=== PATIENT | female | born 1960 | race Hispanic/Latino ===

== ENCOUNTER 2017-11-29 09:11 | Emergency (ER) | payer BC ==
[2017-11-29 09:12] VITALS: BMI 26.8
[2017-11-29] MEDS ORDERED: Multivitamin (MVI) 10 ML, Thiamine 100 MG, Folic Acid 1 MG in Sodium Chloride 0.9% 1,00... IV ONE (09:45)
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
[2017-11-29 10:26] LABS: BASO # 0.1 K/uL (0.0-0.2); BASO % 0.8 % (0.0-2.0); EOS % 0.1 % (0.0-4.0); HEMOGLOBIN 14.1 g/dL (12.0-16.0); LYMPH # 1.3 K/uL (1.0-4.3); LYMPH % 13.6 % (20.0-40.0); MEAN CELL VOLUME 93.5 fl (81.0-99.0); MEAN CORPUSCULAR HEMOGLOBIN 32.4 pg (27.0-31.0); MEAN CORPUSCULAR HGB CONC 34.6 g/dL (33.0-37.0); MEAN PLATELET VOLUME 7.3 fl (7.2-11.7); MONO # 0.4 K/uL (0.0-0.8); MONO % 4.1 % (0.0-10.0); NEUT # 7.7 K/uL (1.8-7.0); NEUT % 81.4 % (50.0-75.0); NRBC % 0.1 % (0.0-0.0); RBC 4.35 Mil/uL (3.80-5.20); WHITE BLOOD COUNT 9.4 K/uL (4.8-10.8)
[2017-11-29 10:55] LABS: ALB/GLOB RATIO 1.2 (1.0-2.1); ALBUMIN 4.9 g/dL (3.5-5.0); ALT/SGPT 134 U/L (9-52); AST/SGOT 335 U/L (14-36); BLOOD UREA NITROGEN 10 mg/dl (7-17); CALCIUM 10.7 mg/dL (8.4-10.2); GFR AFRICAN-AMERICAN > 60; GFR NON-AFRICAN AMERICAN > 60
[2017-11-29 15:55] VITALS: BP 118/82; PULSE 92; RESP 14; TEMP 99; O2SAT 98
== END 2017-11-29 15:56 | disposition home or self-care (01) ==
LOC: H.ER 09:11
DX: F10.239 Alcohol dependence with withdrawal, unspecified (principal); F32.9 Major depressive disorder, single episode, unspecified; E03.9 Hypothyroidism, unspecified
CPT/HCPCS: 80053; 85025; 96365; 96375; 99283; G0480; J2765; J3411; J7040

== ENCOUNTER 2018-01-01 06:00 | Emergency (ER) | payer BC ==
[2018-01-01 06:00] VITALS: BMI 26.8
[2018-01-01 07:23] LABS: BASO # 0.1 K/uL (0.0-0.2); EOS % 0.4 % (0.0-4.0); LYMPH # 2.1 K/uL (1.0-4.3); LYMPH % 24.1 % (20.0-40.0); MEAN CELL VOLUME 93.8 fl (81.0-99.0); MEAN CORPUSCULAR HEMOGLOBIN 31.7 pg (27.0-31.0); MEAN CORPUSCULAR HGB CONC 33.8 g/dL (33.0-37.0); MEAN PLATELET VOLUME 7.5 fl (7.2-11.7); MONO # 0.4 K/uL (0.0-0.8); MONO % 4.1 % (0.0-10.0); NEUT # 6.1 K/uL (1.8-7.0); NEUT % 70.4 % (50.0-75.0); RBC 4.1 Mil/uL (3.80-5.20); RED CELL DISTRIBUTION WIDTH 13.7 % (11.5-14.5); WHITE BLOOD COUNT 8.6 K/uL (4.8-10.8)
[2018-01-01] MEDS ORDERED: Sodium Chloride 0.9% 1,000 ML IV STA (07:28)
[2018-01-01 07:29] LABS: ALB/GLOB RATIO 1.3 (1.0-2.1); ALBUMIN 4.8 g/dL (3.5-5.0); ALT/SGPT 56 U/L (9-52); AST/SGOT 69 U/L (14-36); BLOOD UREA NITROGEN 9 mg/dl (7-17); CALCIUM 10.2 mg/dL (8.4-10.2); GFR AFRICAN-AMERICAN > 60; GFR NON-AFRICAN AMERICAN > 60
--- NOTE | 2018-01-01 07:34 | ED PDOC ---
HPI: Psych/Substance Abuse Time Seen by Provider: 01/01/18 07:04 Chief Complaint (Nursing): Alcohol Ingestion Chief Complaint (Provider): alcohol abuse History Per: Patient History/Exam Limitations: no limitations Onset/Duration Of Symptoms: Days (x1) Current Symptoms Are (Timing): Still Present Associated Symptoms: denies: Suicidal Thoughts, Suicidal Plan Involuntary Hold By: None Additional Complaint(s): Jackelyn Evans is a 57 year old female, with no significant past medical history, who presents to the emergency department for alcohol abuse. Patient admits to binge drinking of alcohol, last drink 19:30 yesterday. Patient reports feeling tremulous and nauseous. He denies any suicidal or homicidal ideation. No further medical complaints. PMD: None provided. Past Medical History Reviewed: Historical Data, Nursing Documentation, Vital Signs Vital Signs: Last Vital Signs Temp 98.1 F 01/01/18 06:24 Pulse 110 H 01/01/18 07:20 Resp 20 01/01/18 07:20 BP 133/90 01/01/18 07:20 Pulse Ox 99 01/01/18 07:20 - Medical History PMH: Depression, Diverticulitis, Hypothyroidism, Malignancy (lymphoma) Denies: HIV - Surgical History Surgical History: No Surg Hx - Family History Family History: States: Unknown Family Hx - Social History Ex-Smoker (has not smoked in the last 12 months): Yes Alcohol: > 2 Drinks/Day Drugs: Denies - Home Medications Home Medications: Ambulatory Orders Medication Instructions Recorded Levothyroxine [Synthroid] 75 mcg PO DAILY 08/20/14 Ca Pantothenate/Folic Acid/V [Once 1 tab PO DAILY 11/13/14 Daily Multi-Vitamin] [place]-3 Fatty Acids/Fish Oil [Fish 1 cap PO DAILY 11/13/14 Oil 1,000 mg Capsule] Ubidecarenone [Coenzyme Q10] 1 cap PO DAILY 11/13/14 Calcium/Vitamin D [Calcium + D 600 1 tab PO Q48H 03/16/15 mg-200 Iu] Cholecalciferol 400 Intl Units 1 tab PO Q48H 03/16/15 [Vitamin D 400 Intl Units Tab] Ondansetron [Zofran] 4 mg PO Q8H PRN #6 tab 09/04/15 Cyclobenzaprine [Flexeril] 5 mg PO Q8 PRN #10 tab 10/09/15 Ibuprofen [Motrin] 600 mg PO TID PRN #30 tab 10/09/15 chlordiazePOXIDE [Chlordiazepoxide 10 mg PO Q8 #9 cap 12/20/15 HCl] Lorazepam [Ativan] 0.5 mg PO Q8 #6 tab 01/01/18 - Allergies Allergies/Adverse Reactions: Allergies Allergy/AdvReac Type Severity Reaction Status Date / Time chlordiazepoxide Allergy agitation, Verified 01/01/18 07:31 [From Librium] nightmares Review of Systems ROS Statement: Except As Marked, All Systems Reviewed And Found Negative Constitutional: Positive for: Other (ETOH abuse) Psych: Negative for: Suicidal ideation (homicidal ideation) Physical Exam - Reviewed Nursing Documentation Reviewed: Yes Vital Signs Reviewed: Yes - Physical Exam Appears: Positive for: Non-toxic Head Exam: Positive for: ATRAUMATIC, NORMOCEPHALIC Skin: Positive for: Normal Color, Warm, Dry Eye Exam: Positive for: Normal appearance, EOMI, PERRL Neck: Positive for: Painless ROM Cardiovascular/Chest: Positive for: Regular Rate, Rhythm. Negative for: Murmur Respiratory: Positive for: Normal Breath Sounds. Negative for: Respiratory Distress Gastrointestinal/Abdominal: Positive for: Normal Exam, Soft. Negative for: Tenderness, Guarding, Rebound Extremity: Positive for: Normal ROM (upper and lower extremities). Negative for : Deformity, Swelling Neurologic/Psych: Positive for: Alert, Oriented (x3), Other (mild tremor of upper extremities b/l) - Laboratory Results Result Diagrams: 01/01/18 06:50 01/01/18 06:50 - ECG O2 Sat by Pulse Oximetry: 99 (RA) Pulse Ox Interpretation: Normal - Progress Re-evaluation Time: 10:27 Condition: Improved (No tremor Awake alert oriented x 3) Medical Decision Making Medical Decision Making: Initial Plan: --Alcohol serum --CMP --Urine dipstick --CBC w/ differential --Ativan 0.5mg PO --Sodium Chloride 1,000 ml IV 100 mls/hr --Zofran ODT 4 mg PO Scribe Attestation: Documented by Paras Ross, acting as a scribe for Saqib Jacobson MD Provider Scribe Attestation: All medical record entries made by the Scribe were at my direction and personally dictated by me. I have reviewed the chart and agree that the record accurately reflects my personal performance of the history, physical exam, medical decision making, and the department course for this patient. I have also personally directed, reviewed, and agree with the discharge instructions and disposition. Disposition - Clinical Impression Clinical Impression: Alcohol withdrawal - Patient ED Disposition Is Patient to be Admitted: No Counseled Patient/Family Regarding: Studies Performed, Diagnosis, Need For Followup, Rx Given - Disposition Referrals: [facility] [Outside] Disposition: Routine/Home Disposition Time: 10:27 Condition: FAIR Prescriptions: Lorazepam [Ativan] 0.5 mg PO Q8 #6 tab Instructions: Alcohol Withdrawal, Alcohol Abuse and Alcoholism (DC) Forms: [employer] ([place])
[2018-01-01 12:52] VITALS: RESP 18; TEMP 98.2; O2SAT 99
[2018-01-01 13:18] VITALS: BP 146/80; PULSE 94
== END 2018-01-01 13:18 | disposition home or self-care (01) ==
LOC: H.ER 06:00
DX: F10.239 Alcohol dependence with withdrawal, unspecified (principal); E03.9 Hypothyroidism, unspecified; F32.9 Major depressive disorder, single episode, unspecified; Z87.891 Personal history of nicotine dependence
CPT/HCPCS: 80053; 82948; 85025; 99284; G0480; J7040

== ENCOUNTER 2018-03-22 10:21 | Emergency (ER) | payer BC ==
[2018-03-22 10:21] VITALS: BMI 26.8
[2018-03-22 10:25] VITALS: TEMP 98.3
[2018-03-22] MEDS ORDERED: Sodium Chloride 0.9% 1,000 ML IV STA ×2 (11:14→14:28)
[2018-03-22 11:33] LABS: BASO # 0.1 K/uL (0.0-0.2); BASO % 1.7 % (0.0-2.0); EOS # 0.1 K/uL (0.0-0.7); EOS % 1.6 % (0.0-4.0); HEMOGLOBIN 13.4 g/dL (12.0-16.0); LYMPH # 1.4 K/uL (1.0-4.3); LYMPH % 28.7 % (20.0-40.0); MEAN CELL VOLUME 95.5 fl (81.0-99.0); MEAN CORPUSCULAR HEMOGLOBIN 32.4 pg (27.0-31.0); MEAN CORPUSCULAR HGB CONC 33.9 g/dL (33.0-37.0); MEAN PLATELET VOLUME 6.9 fl (7.2-11.7); MONO # 0.3 K/uL (0.0-0.8); MONO % 5.6 % (0.0-10.0); NEUT % 62.4 % (50.0-75.0); NRBC % 0.1 % (0.0-0.0); RBC 4.15 Mil/uL (3.80-5.20); RED CELL DISTRIBUTION WIDTH 13.6 % (11.5-14.5); WHITE BLOOD COUNT 4.8 K/uL (4.8-10.8)
--- NOTE | 2018-03-22 11:52 | ED PDOC ---
HPI: Psych/Substance Abuse Time Seen by Provider: 03/22/18 10:39 Chief Complaint (Nursing): Alcohol Ingestion Chief Complaint (Provider): Alcohol Ingestion History Per: Patient Onset/Duration Of Symptoms: Days (x5) Current Symptoms Are (Timing): Still Present Modifying Factor(s): Alcohol Additional Complaint(s): 57 y/o female with a PMHx of Alcohol Abuse presents to the ED complaining of alcohol intoxication. Patient reports she has been binge drinking for the past five days. Patient admits to drinking this morning. Patient is here today to get help for alcohol problem Additionally, patient is complaining of mild chest pain and palpitations since this morning. Denies vomiting, abdominal pain, diarrhea, fever, headache, suicidal ideation and homicidal ideation. PMD: Kaylin Espino Past Medical History Reviewed: Historical Data, Nursing Documentation, Vital Signs Vital Signs: Last Vital Signs Temp 98.3 F 03/22/18 10:24 Pulse 93 H 03/22/18 11:28 Resp 17 03/22/18 11:28 BP 115/78 03/22/18 11:28 Pulse Ox 96 03/22/18 11:28 - Medical History PMH: Depression, Diverticulitis, Hypothyroidism, Malignancy (lymphoma) Denies: HIV - Surgical History Surgical History: No Surg Hx - Family History Family History: States: Unknown Family Hx - Home Medications Home Medications: Ambulatory Orders Medication Instructions Recorded Levothyroxine [Synthroid] 75 mcg PO DAILY 08/20/14 Ca Pantothenate/Folic Acid/V [Once 1 tab PO DAILY 11/13/14 Daily Multi-Vitamin] [place]-3 Fatty Acids/Fish Oil [Fish 1 cap PO DAILY 11/13/14 Oil 1,000 mg Capsule] Ubidecarenone [Coenzyme Q10] 1 cap PO DAILY 11/13/14 Calcium/Vitamin D [Calcium + D 600 1 tab PO Q48H 03/16/15 mg-200 Iu] Cholecalciferol 400 Intl Units 1 tab PO Q48H 03/16/15 [Vitamin D 400 Intl Units Tab] Ondansetron [Zofran] 4 mg PO Q8H PRN #6 tab 09/04/15 Cyclobenzaprine [Flexeril] 5 mg PO Q8 PRN #10 tab 10/09/15 Ibuprofen [Motrin] 600 mg PO TID PRN #30 tab 10/09/15 chlordiazePOXIDE [Chlordiazepoxide 10 mg PO Q8 #9 cap 12/20/15 HCl] Lorazepam [Ativan] 0.5 mg PO Q8 #6 tab 01/01/18 Ondansetron [Zofran] 4 mg PO Q8H #10 tab 01/01/18 LORazepam [Ativan] 1 mg PO Q8 PRN #6 tab 03/22/18 Ondansetron ODT [Zofran ODT] 4 mg PO Q6 PRN #8 odt 03/22/18 - Allergies Allergies/Adverse Reactions: Allergies Allergy/AdvReac Type Severity Reaction Status Date / Time chlordiazepoxide Allergy agitation, Verified 03/22/18 10:28 [From Librium] nightmares Review of Systems ROS Statement: Except As Marked, All Systems Reviewed And Found Negative Cardiovascular: Positive for: Chest Pain (mild), Palpitations Psych: Positive for: Other (EtOH intoxication) Physical Exam - Reviewed Nursing Documentation Reviewed: Yes Vital Signs Reviewed: Yes - Physical Exam Appears: Positive for: Non-toxic, No Acute Distress Head Exam: Positive for: ATRAUMATIC, NORMOCEPHALIC Skin: Positive for: Normal Color, Warm, Dry Eye Exam: Positive for: Normal appearance, EOMI, PERRL ENT: Positive for: Normal ENT Inspection Neck: Positive for: Normal, Painless ROM Cardiovascular/Chest: Positive for: Regular Rate, Rhythm, Tachycardia. Negative for: Murmur Respiratory: Positive for: Normal Breath Sounds. Negative for: Respiratory Distress Gastrointestinal/Abdominal: Positive for: Normal Exam, Soft. Negative for: Tenderness Back: Positive for: Normal Inspection. Negative for: L CVA Tenderness, R CVA Tenderness, Vertebral Tenderness Extremity: Positive for: Normal ROM. Negative for: Pedal Edema, Deformity Neurologic/Psych: Positive for: Alert, Oriented (x3), Gait (unsteady), Other ( Slurred Speech). Negative for: Motor/Sensory Deficits - Laboratory Results Result Diagrams: 03/22/18 11:20 03/22/18 11:20 - ECG ECG: Positive for: Interpreted By Me, Viewed By Me ECG Rhythm: Positive for: Normal QRS, Normal ST Segment, Sinus Tachycardia. Negative for: ST/T Changes Rate: 103 O2 Sat by Pulse Oximetry: 96 (RA) Pulse Ox Interpretation: Normal Medical Decision Making Medical Decision Making: Time: 1115 Impression: Alcohol Abuse/Intoxication, chest pain Plan: -- EKG -- Alcohol Serum -- CMP -- Urine Drug Screen -- Crisis Evaluation -- ED Urine -- CBC with differentials -- Folic Acid 1 mg PO -- Sodium Chloride IV 1000 mls/hr -- Vitamin B1 100 mg PO -- Urinalysis 16:45 Date of service: 03/22/2018 HISTORY: chest pain COMPARISON: 10/09/2015. FINDINGS: LUNGS: No active pulmonary disease. PLEURA: No significant pleural effusion identified, no pneumothorax apparent. CARDIOVASCULAR: No radiographic findings to suggest acute or significant cardiovascular disease. OSSEOUS STRUCTURES: No significant abnormalities. VISUALIZED UPPER ABDOMEN: Normal. OTHER FINDINGS: None. IMPRESSION: No active disease. No significant interval change compared to the prior examination(s). 19:05 Reassessed patient. Patient states shes feeling better, but is anxious. Patient is clinically sober and agreeable to crisis evaluation. Patient given Ativan to prevent withdrawals. Patient endorsed to Dr. Baugh pending crisis and reevaluation. Scribe Attestation: Documented by Tamara Campbell acting as a scribe for Dr. Reginaldo Pate MD. Provider Scribe Attestation: All medical record entries made by the Scribe were at my direction and personally dictated by me. I have reviewed the chart and agree that the record accurately reflects my personal performance of the history, physical exam, medical decision making, and the department course for this patient. I have also personally directed, reviewed, and agree with the discharge instructions and disposition. Disposition - Clinical Impression Clinical Impression: Alcohol use disorder - Patient ED Disposition Is Patient to be Admitted: Transfer of Care Counseled Patient/Family Regarding: Studies Performed, Diagnosis - Disposition Disposition: Transfer of Care Disposition Time: 19:05 Condition: STABLE Additional Instructions: LISA MATTA, thank you for letting us take care of you today. Your provider was Edy Baugh MD and you were treated for ETOH. The emergency medical care you received today was directed at your acute symptoms. If you were prescribed any medication, please fill it and take as directed. It may take several days for your symptoms to resolve. Return to the Emergency Department if your symptoms worsen, do not improve, or if you have any other problems. Please contact your doctor or call one of the physicians/clinics you have been referred to that are listed on the Patient Visit Information form that is included in your discharge packet. Bring any paperwork you were given at discharge with you along with any medications you are taking to your follow up visit. Our treatment cannot replace ongoing medical care by a primary care provider outside of the emergency department. Thank you for allowing the [facility] team to be part of your care today. If you had an X-Ray or CT scan: A Radiologist will review the ED reading if any change in treatment is needed we will contact you. If you had a blood, urine, or wound culture: It will take several days for the results, if any change in treatment is needed we will contact you. If you had an STI test: It will take 48 hours for the results. Please call after 1 week if you have not heard back. Prescriptions: LORazepam [Ativan] 1 mg PO Q8 PRN #6 tab PRN Reason: Anxiety Ondansetron ODT [Zofran ODT] 4 mg PO Q6 PRN #8 odt PRN Reason: Nausea/Vomiting Instructions: Alcohol Use - When Is Drinking a Problem? Patient Signed Over To: Edy Baugh Handoff Comments: pending crisis and reevaluation
[2018-03-22 11:59] LABS: ALB/GLOB RATIO 1.4 (1.0-2.1); ALBUMIN 4.7 g/dL (3.5-5.0); ALT/SGPT 118 U/L (9-52); AST/SGOT 233 U/L (14-36); BLOOD UREA NITROGEN 15 mg/dl (7-17); CALCIUM 9.6 mg/dL (8.4-10.2); GFR NON-AFRICAN AMERICAN > 60
--- NOTE | 2018-03-22 12:25 | CARD ---
APPROVED REPORT Date of service: 03/22/2018 EKG Measurement Heart [id number] <Conclusion> Sinus tachycardia Possible Left atrial enlargement Low voltage QRS Borderline ECG
[2018-03-22 15:54] VITALS: BP 117/81; PULSE 103; RESP 20
[2018-03-22 16:17] VITALS: O2SAT 96
--- NOTE | 2018-03-22 16:46 | RAD ---
Date of service: 03/22/2018 HISTORY: chest pain COMPARISON: 10/09/2015. FINDINGS: LUNGS: No active pulmonary disease. PLEURA: No significant pleural effusion identified, no pneumothorax apparent. CARDIOVASCULAR: No radiographic findings to suggest acute or significant cardiovascular disease. OSSEOUS STRUCTURES: No significant abnormalities. VISUALIZED UPPER ABDOMEN: Normal. OTHER FINDINGS: None. IMPRESSION: No active disease. No significant interval change compared to the prior examination(s).
[2018-03-22 17:37] LABS: SQUAMOUS EPITHIAL < 1 /hpf (0-5); URINE BACTERIA RARE (<OCC); URINE BILIRUBIN NEGATIVE (NEGATIVE); URINE BLOOD MODERATE (NEGATIVE); URINE CLARITY CLEAR (Clear); URINE COLOR YELLOW (YELLOW); URINE GLUCOSE (UA) NEG (Normal); URINE LEUKOCYTE ESTERASE TRACE Leu/uL (Negative); URINE PROTEIN NEGATIVE (NEGATIVE); URINE UROBILINOGEN 0.2-1.0 mg/dL (0.2-1.0)
[2018-03-22 17:49] LABS: BARBITURATES, UR NEGATIVE (NEGATIVE); BENZODIAZEPINES, UR NEGATIVE (NEGATIVE); OPIATES, UR NEGATIVE (NEGATIVE); PHENCYCLIDINE, UR NEGATIVE (NEGATIVE)
--- NOTE | 2018-03-22 19:13 | ED PDOC ---
- Laboratory Results Result Diagrams: 03/22/18 11:20 03/22/18 11:20 - ECG O2 Sat by Pulse Oximetry: 96 (RA) Medical Decision Making Medical Decision Makin:05 Patient endorsed to me by Dr. Pate pending crisis and reevaluation. 20:25 Patient evaluated by crisis. Patient declines any detox referral or services. Patient stable for discharge. Scribe Attestation: Documented by Rodrick Leyva, acting as a scribe for Edy Baugh MD. Provider Scribe Attestation: All medical record entries made by the Scribe were at my direction and personally dictated by me. I have reviewed the chart and agree that the record accurately reflects my personal performance of the history, physical exam, medical decision making, and the department course for this patient. I have also personally directed, reviewed, and agree with the discharge instructions and disposition. Disposition Counseled Patient/Family Regarding: Diagnosis, Need For Followup - Clinical Impression Clinical Impression: Alcohol use disorder - POA Present On Arrival: None - Disposition Disposition: Routine/Home Disposition Time: 20:25 Condition: STABLE Additional Instructions: LISA MATTA, thank you for letting us take care of you today. Your provider was Edy Baugh MD and you were treated for ETOH. The emergency medical care you received today was directed at your acute symptoms. If you were prescribed any medication, please fill it and take as directed. It may take several days for your symptoms to resolve. Return to the Emergency Department if your symptoms worsen, do not improve, or if you have any other problems. Please contact your doctor or call one of the physicians/clinics you have been referred to that are listed on the Patient Visit Information form that is included in your discharge packet. Bring any paperwork you were given at discharge with you along with any medications you are taking to your follow up visit. Our treatment cannot replace ongoing medical care by a primary care provider outside of the emergency department. Thank you for allowing the [facility] team to be part of your care today. If you had an X-Ray or CT scan: A Radiologist will review the ED reading if any change in treatment is needed we will contact you. If you had a blood, urine, or wound culture: It will take several days for the results, if any change in treatment is needed we will contact you. If you had an STI test: It will take 48 hours for the results. Please call after 1 week if you have not heard back. Prescriptions: LORazepam [Ativan] 1 mg PO Q8 PRN #6 tab PRN Reason: Anxiety Ondansetron ODT [Zofran ODT] 4 mg PO Q6 PRN #8 odt PRN Reason: Nausea/Vomiting Instructions: Alcohol Use - When Is Drinking a Problem? Forms: [employer] (Persian)
== END 2018-03-22 21:47 | disposition home or self-care (01) ==
LOC: H.ER 10:21
DX: F10.129 Alcohol abuse with intoxication, unspecified (principal); R07.89 Other chest pain; E03.9 Hypothyroidism, unspecified; F32.9 Major depressive disorder, single episode, unspecified
CPT/HCPCS: 71045; 80053; 81003; 81025; 82948; 84484; 85025; 93005; 96361; 96374; 99284; G0480; J2405; J7030

== ENCOUNTER 2018-11-06 08:06 | Inpatient (IN) | payer BC ==
[2018-11-06 08:07] VITALS: BMI 25.0
[2018-11-06] MEDS ORDERED: Sodium Chloride 0.9% 1,000 ML IV STA (08:23)
--- NOTE | 2018-11-06 08:47 | ED PDOC ---
HPI: Psych/Substance Abuse Time Seen by Provider: 11/06/18 08:23 Chief Complaint (Nursing): Alcohol Ingestion Chief Complaint (Provider): Alcohol withdrawal History Per: Patient History/Exam Limitations: no limitations Additional Complaint(s): 58yo female with history of hypothyroidsm, alcohol abuse x 6 years, comes to ER reporting she is currently in alcohol withdrawal; patient reports her last drink was 24 hours ago. Otherwise, no complaints of chest pain, shortness of breath, vomiting, abdominal pain. No additional medical complaints. PMD: [place] Past Medical History Reviewed: Historical Data, Nursing Documentation, Vital Signs Vital Signs: Last Vital Signs Temp 98.2 F 11/06/18 08:11 Pulse 101 H 11/06/18 08:12 Resp 14 11/06/18 08:12 BP 126/94 H 11/06/18 08:12 Pulse Ox 100 11/06/18 08:12 - Medical History PMH: Depression, Diverticulitis, Hypothyroidism, Malignancy (lymphoma) Denies: Diabetes, Hepatitis, HIV, HTN, Chronic Kidney Disease, Seizures, Sexually Transmitted Disease - Surgical History Surgical History: No Surg Hx - Family History Family History: States: Unknown Family Hx - Home Medications Home Medications: Ambulatory Orders Medication Instructions Recorded Lactobacillus Combination No.8 1 cap PO DAILY 11/06/18 [Adult Probiotic] Levothyroxine [Synthroid] 75 mcg PO DAILY 11/06/18 Multivitamin [Multi-Vitamin Daily] 1 tab PO DAILY 11/06/18 - Allergies Allergies/Adverse Reactions: Allergies Allergy/AdvReac Type Severity Reaction Status Date / Time chlordiazepoxide Allergy agitation, Verified 05/01/18 11:38 [From Librium] nightmares Review of Systems ROS Statement: Except As Marked, All Systems Reviewed And Found Negative Constitutional: Negative for: Fever Cardiovascular: Negative for: Chest Pain Respiratory: Negative for: Shortness of Breath Gastrointestinal: Negative for: Vomiting, Abdominal Pain Neurological: Positive for: Other (tremors) Psych: Positive for: Withdrawal Physical Exam - Reviewed Nursing Documentation Reviewed: Yes Vital Signs Reviewed: Yes - Physical Exam Appears: Positive for: No Acute Distress (tremulous) Head Exam: Positive for: ATRAUMATIC, NORMAL INSPECTION, NORMOCEPHALIC Skin: Positive for: Warm, Dry Eye Exam: Positive for: EOMI, PERRL Neck: Positive for: Supple Cardiovascular/Chest: Positive for: Tachycardia Respiratory: Positive for: Normal Breath Sounds Gastrointestinal/Abdominal: Positive for: Normal Exam, Soft Back: Positive for: Normal Inspection Extremity: Positive for: Normal ROM, Other (tremulous) Neurological/Psych: Positive for: Awake, Alert, Oriented (x 3), Other (appears to be withdrawqing) - Laboratory Results Result Diagrams: 11/06/18 08:42 11/06/18 08:42 - ECG O2 Sat by Pulse Oximetry: 100 (RA) Pulse Ox Interpretation: Normal Medical Decision Making Medical Decision [place] female with alcohol withdrawal- pt tachycardic and hypertensive Plan: -- Labs -- IV Fluids -- Ativan 1mg IVP (patient allergic to librium) banana bag 1500 Labs reviewed, patient with hypothyroidsm 1540 On reassessment, patient with persistent tremors. Due to hypothyroidsm, tremors, patient to be admitted for observation. Case discussed with Dr. Morales and patient admitted. Consult for endocrine placed. pt aware and agreeable Scribe Attestation: Documented by Neema Marx acting as a scribe for Edna Humphries MD. Provider Attestation: All medical record entries made by the Scribe were at my direction and personally dictated by me. I have reviewed the chart and agree that the record a ccurately reflects my personal performance of the history, physical exam, medical decision making, and the department course for this patient. I have also personally directed, reviewed, and agree with the discharge instructions and disposition. Disposition - Clinical Impression Clinical Impression: Alcohol withdrawal, Hypothyroid - Patient ED Disposition Is Patient to be Admitted: Yes Counseled Patient/Family Regarding: Studies Performed, Diagnosis, Smoking Cessation - Disposition Disposition Time: 15:00 Condition: STABLE
[2018-11-06 08:59] LABS: BASO # 0.1 K/uL (0.0-0.2); BASO % 0.8 % (0.0-2.0); EOS % 0.1 % (0.0-4.0); HEMOGLOBIN 12.8 g/dL (12.0-16.0); LYMPH # 0.5 K/uL (1.0-4.3); LYMPH % 8.8 % (20.0-40.0); MEAN CORPUSCULAR HEMOGLOBIN 33.1 pg (27.0-31.0); MEAN CORPUSCULAR HGB CONC 34.5 g/dL (33.0-37.0); MEAN PLATELET VOLUME 7.1 fl (7.2-11.7); MONO # 0.3 K/uL (0.0-0.8); MONO % 5.5 % (0.0-10.0); NEUT # 5.2 K/uL (1.8-7.0); NEUT % 84.8 % (50.0-75.0); NRBC % 0.2 % (0.0-0.0); PLATELET COUNT 261 K/uL (130-400); RBC 3.85 Mil/uL (3.80-5.20); WHITE BLOOD COUNT 6.1 K/uL (4.8-10.8)
[2018-11-06 09:06] LABS: ALB/GLOB RATIO 1.4 (1.0-2.1); ALBUMIN 4.6 g/dL (3.5-5.0); ALT/SGPT 45 U/L (9-52); AST/SGOT 56 U/L (14-36); BLOOD UREA NITROGEN 22 mg/dl (7-17); CALCIUM 9.9 mg/dL (8.4-10.2); GFR NON-AFRICAN AMERICAN > 60
[2018-11-06 09:51] LABS: BASOPHIL 1 % (0-2); LYMPHOCYTE 9 % (20-50); MONOCYTE 4 % (0-10); NEUTROPHIL 86 % (42-75); TOTAL CELLS COUNTED 100
[2018-11-06 09:57] LABS: PLATELET ESTIMATE NORMAL (NORMAL)
[2018-11-06] MEDS ORDERED: Multivitamin (MVI) 10 ML, Thiamine 100 MG, Folic Acid 1 MG in Dextrose 5%/0.45% NS 1,00... IV ONE (10:53)
[2018-11-06] MEDS ORDERED: Dextrose 5%/0.45% NS 1,000 ML IV SCH (16:30)
[2018-11-06 17:53] VITALS: RESP 18
--- NOTE | 2018-11-06 21:10 | CARD ---
APPROVED REPORT Date of service: 11/06/2018 EKG Measurement Heart [id number] <Conclusion> Normal sinus rhythm Prolonged QT Abnormal ECG
[2018-11-07 01:03] LABS: BARBITURATES, UR NEGATIVE (NEGATIVE); BENZODIAZEPINES, UR NEGATIVE (NEGATIVE); OPIATES, UR NEGATIVE (NEGATIVE); PHENCYCLIDINE, UR NEGATIVE (NEGATIVE)
[2018-11-07 05:58] LABS: ALB/GLOB RATIO 1.3 (1.0-2.1); ALBUMIN 3.5 g/dL (3.5-5.0); ALT/SGPT 34 U/L (9-52); AST/SGOT 45 U/L (14-36); BLOOD UREA NITROGEN 10 mg/dl (7-17); CALCIUM 9.1 mg/dL (8.4-10.2); GFR NON-AFRICAN AMERICAN > 60; LIPASE 108 U/L (23-300)
[2018-11-07 06:08] LABS: LDL CHOLESTEROL 68 mg/dL (0-129)
[2018-11-07 06:10] LABS: HDL CHOLESTEROL 115 MG/DL (30-70)
--- NOTE | 2018-11-07 06:27 | CP.PCM.HP ---
History of Present Illness - History of Present Illness History of Present Illness: This is 58 y/o F with PMH of Alcohol use disorder/Withdrawal/Relapses, Hypothyroid and Lymphoma (Large B cell, S/p RT and Chemo in 2005, in remission) admitted for evaluation and treatment of alcohol withdrawal/abuse. Patient presented to ER c/o "I am having alcohol withdrawal", reports her last drink was >24 hours before, started feeling sweaty, upper extremities tremors and n/v since last 12 hours (multiple episodes of NBNB vomiting). Patient reports she is a "binge alcoholic", she hasnt taken her thyroid medication for last 11 days. Patient denies any auditory or visual hallucination, SI/HI, palpitations, chest pain, anxiety, headaches, visual changes, diarrhea, abdominal pain or urinary symptoms. - Patient reports she has to go to work in morning, so wont be able to stay and needs note from MD for work and court. PMH:Alcohol use disorder/Withdrawal/Relapses, Hypothyroid and Lymphoma (Large B cell, S/p RT and Chemo in 2005, in remission) PSH: Denies Allg: Librium (Gets angry after librium) Meds: Levothyroxin FH: Dad: Colon cancer, Mother: [place] SH: binge alcoholic, Denies any smoking or illicit drug use ROS: As above Present on Admission - Present on Admission Any Indicators Present on Admission: No Past Patient History - Infectious Disease Hx of Infectious Diseases: None - Past Medical History & Family History Past Medical History?: Yes - Past Social History Smoking Status: Never Smoked - CARDIAC Hx Cardiac Disorders: No Hx Angina: No Hx Atrial Fibrillation: No Hx Cardia Arrhythmia: No Hx Circulatory Problems: No Hx Congestive Heart Failure: No Hx Heart Attack: No Hx Heart Murmur: No Hx Heart Transplant: No Hx Hypercholesterolemia: No Hx Hypertension: No Hx Hypotension: No Hx Internal Defibrillator: No Hx Mitral Valve Prolapse: No Hx Pacemaker: No Hx Peripheral Edema: No Hx Peripheral Vascular Disease: No - PULMONARY Hx Respiratory Disorders: No Hx Asthma: No Hx Bronchitis: No Hx Chronic Obstructive Pulmonary Disease (COPD): No Hx Emphysema: No Hx Lung Cancer: No Hx Pneumonia: No Hx Pulmonary Edema: No Hx Pulmonary Embolism: No Hx Respiratory Aspiration: No Hx Respiratory Tract Infection: No Hx Sleep Apnea: No Hx Tuberculosis: No - NEUROLOGICAL Hx Neurological Disorder: No Hx Seizures: No - HEENT Hx HEENT Problems: No - RENAL Hx Chronic Kidney Disease: No - ENDOCRINE/METABOLIC Hx Endocrine Disorders: Yes Hx Hypothyroidism: Yes - HEMATOLOGICAL/ONCOLOGICAL Hx AIDS: No Hx Cancer: Yes (Non-hodgkins lymphoma, remission 12 years) Hx Chemotherapy: Yes Hx Human Immunodeficiency Virus (HIV): No - INTEGUMENTARY Hx Dermatological Problems: No Hx Basil Cell: No Hx Paz: No Hx Cellulitis: No Hx Eczema: No Hx Melanoma: No Hx Psoriasis: No Hx Squamous Cell: No - MUSCULOSKELETAL/RHEUMATOLOGICAL Hx Musculoskeletal Disorders: No Hx Falls: No - GASTROINTESTINAL Hx Gastrointestinal Disorders: Yes Hx Diverticulitis: Yes Hx Nausea: Yes Hx Vomiting: Yes - GENITOURINARY/GYNECOLOGICAL Hx Genitourinary Disorders: No Hx Sexually Transmitted Disorders: No - PSYCHIATRIC Hx Psychophysiologic Disorder: Yes Hx Depression: Yes Hx Substance Use: Yes (alcohol abuse) - SURGICAL HISTORY Hx Surgeries: No - ANESTHESIA Hx Anesthesia: No Hx Anesthesia Reactions: No Hx Malignant Hyperthermia: No Has any member of the family had a problem w/ anesthesia?: No Meds Allergies/Adverse Reactions: Allergies Allergy/AdvReac Type Severity Reaction Status Date / Time chlordiazepoxide Allergy agitation, Verified 05/01/18 11:38 [From Librium] nightmares Physical Exam - Constitutional Appears: No Acute Distress - Head Exam Head Exam: NORMAL INSPECTION - Eye Exam Eye Exam: Normal appearance - ENT Exam ENT Exam: Mucous Membranes Moist, Normal Exam - Neck Exam Neck exam: Positive for: Normal Inspection - Respiratory Exam Respiratory Exam: Clear to Auscultation Bilateral, NORMAL BREATHING PATTERN. absent: Rhonchi, Wheezes, Respiratory Distress - Cardiovascular Exam Cardiovascular Exam: Tachycardia, REGULAR RHYTHM, +S1, +S2 - GI/Abdominal Exam GI & Abdominal Exam: Normal Bowel Sounds, Soft. absent: Tenderness - Extremities Exam Additional comments: upper extremity tremors - Back Exam Back exam: NORMAL INSPECTION. absent: CVA tenderness (L), CVA tenderness (R) - Neurological Exam Neurological exam: Alert, CN II-XII Intact, Normal Gait, Oriented x3, Reflexes Normal Additional comments: CIWA score 7 - Psychiatric Exam Psychiatric exam: Normal Affect, Normal Mood - Skin Skin Exam: Normal Color Results - Vital Signs Recent Vital Signs: Last Vital Signs Temp 98.6 F 11/07/18 05:22 Pulse 88 11/07/18 05:22 Resp 18 11/07/18 05:22 BP 107/67 11/07/18 05:22 Pulse Ox 97 11/07/18 05:22 - Labs Result Diagrams: 11/06/18 08:42 11/07/18 04:45 Labs: Laboratory Results - last 24 hr 11/06/18 11/06/18 11/07/18 08:42 08:42 00:41 WBC 6.1 RBC 3.85 Hgb 12.8 Hct 37.0 MCV 96.0 MCH 33.1 H MCHC 34.5 RDW 14.0 Plt Count 261 MPV 7.1 L Neut % (Auto) 84.8 H Lymph % (Auto) 8.8 L [place] % (Auto) 5.5 Eos % (Auto) 0.1 Baso % (Auto) 0.8 Neut # (Auto) 5.2 Lymph # (Auto) 0.5 L [place] # (Auto) 0.3 Eos # (Auto) 0.0 Baso # (Auto) 0.1 Neutrophils % (Manual) 86 H Lymphocytes % (Manual) 9 L Monocytes % (Manual) 4 Basophils % (Manual) 1 Platelet Estimate Normal RBC Morphology Normal Sodium 136 Potassium 3.6 Chloride 96 L Carbon Dioxide 26 Anion Gap 18 BUN 22 H Creatinine 0.8 Est GFR ( Amer) > 60 Est GFR (Non-Af Amer) > 60 Random Glucose 121 H Calcium 9.9 Magnesium Total Bilirubin 0.8 AST 56 H D ALT 45 Alkaline Phosphatase 73 Troponin I < 0.0120 Total Protein 7.9 Albumin 4.6 Globulin 3.3 Albumin/Globulin Ratio 1.4 Triglycerides Cholesterol LDL Cholesterol Direct HDL Cholesterol Lipase Thyroxine (T4) 3.25 L TSH 3rd Generation 14.30 H Urine Opiates Screen Negative Urine Methadone Screen Negative Ur Barbiturates Screen Negative Ur Phencyclidine Scrn Negative Ur Amphetamines Screen Negative U Benzodiazepines Scrn Negative U Oth Cocaine Metabols Negative U Cannabinoids Screen Negative Alcohol, Quantitative < 10 11/07/18 04:45 WBC RBC Hgb Hct MCV MCH MCHC RDW Plt Count MPV Neut % (Auto) Lymph % (Auto) [place] % (Auto) Eos % (Auto) Baso % (Auto) Neut # (Auto) Lymph # (Auto) [place] # (Auto) Eos # (Auto) Baso # (Auto) Neutrophils % (Manual) Lymphocytes % (Manual) Monocytes % (Manual) Basophils % (Manual) Platelet Estimate RBC Morphology Sodium 135 Potassium 2.9 L Chloride 103 Carbon Dioxide 25 Anion Gap 10 BUN 10 Creatinine 0.8 Est GFR ( Amer) > 60 Est GFR (Non-Af Amer) > 60 Random Glucose 108 H Calcium 9.1 Magnesium 1.6 Total Bilirubin 0.9 AST 45 H ALT 34 Alkaline Phosphatase 64 Troponin I Total Protein 6.3 Albumin 3.5 D Globulin 2.8 Albumin/Globulin Ratio 1.3 Triglycerides 200 H D Cholesterol 199 LDL Cholesterol Direct 68 HDL Cholesterol 115 H Lipase 108 Thyroxine (T4) 3.01 L TSH 3rd Generation 24.00 H Urine Opiates Screen Urine Methadone Screen Ur Barbiturates Screen Ur Phencyclidine Scrn Ur Amphetamines Screen U Benzodiazepines Scrn U Oth Cocaine Metabols U Cannabinoids Screen Alcohol, Quantitative Assessment & Plan - Assessment and Plan (Free Text) Assessment: A/P: 58 y/o F with PMH of Alcohol use disorder/Withdrawal/Relapses, Hypothyroid and Lymphoma (Large B cell, S/p RT and Chemo in 2005, in remission) admitted for evaluation and treatment of alcohol withdrawal/abuse. Alcohol withdrawal/ Abuse - S/p IVF, Banana beg - C/w IVF - Ativan PRN - Monitor for withdrawal symptoms - [facility] - Start Thiamin and Folate - F/u morning labs QT prolongation on EKG, likely 2/2 alcohol use/withdrawal - Repeat EKG in morning - Cardio consult, f/u recommendations Nausea and Vomiting - C/w Reglan (No zofran, QT prolonged) - Symptomatic management - IVF - Diet as tolerated Hypothyroid - C/w Home Synthroid dose: 75 mcg - Consult Endo, f/u recommendations DVT PPX: SCD, lovenox Case discussed with Dr. Morales, agrees with plan.
[2018-11-07] MEDS ORDERED: Levothyroxine 100 MCG TAB PO SCH (06:30)
[2018-11-07] MEDS ORDERED: Levothyroxine 75 MCG TAB PO SCH (06:30)
--- NOTE | 2018-11-07 06:58 | CP.PCM.CON ---
History of Present Illness - History of Present Illness History of Present Illness: 58 y/o female admitted with alcohol withdrawal Cardiology consult is called because of prolonged QT interval on EKG which has been present for at least 4 years She denies any history of cardiac problems or hypertension Denies chest pain, shortness of breath, syncope, vertigo or palpitations The prolonged QT interval is secondary to patient's alcohol withdrawal Past Patient History - Infectious Disease Hx of Infectious Diseases: None - Past Medical History & Family History Past Medical History?: Yes - Past Social History Smoking Status: Never Smoked - CARDIAC Hx Cardiac Disorders: No Hx Angina: No Hx Atrial Fibrillation: No Hx Cardia Arrhythmia: No Hx Circulatory Problems: No Hx Congestive Heart Failure: No Hx Heart Attack: No Hx Heart Murmur: No Hx Heart Transplant: No Hx Hypercholesterolemia: No Hx Hypertension: No Hx Hypotension: No Hx Internal Defibrillator: No Hx Mitral Valve Prolapse: No Hx Pacemaker: No Hx Peripheral Edema: No Hx Peripheral Vascular Disease: No - PULMONARY Hx Respiratory Disorders: No Hx Asthma: No Hx Bronchitis: No Hx Chronic Obstructive Pulmonary Disease (COPD): No Hx Emphysema: No Hx Lung Cancer: No Hx Pneumonia: No Hx Pulmonary Edema: No Hx Pulmonary Embolism: No Hx Respiratory Aspiration: No Hx Respiratory Tract Infection: No Hx Sleep Apnea: No Hx Tuberculosis: No - NEUROLOGICAL Hx Neurological Disorder: No Hx Seizures: No - HEENT Hx HEENT Problems: No - RENAL Hx Chronic Kidney Disease: No - ENDOCRINE/METABOLIC Hx Endocrine Disorders: Yes Hx Hypothyroidism: Yes - HEMATOLOGICAL/ONCOLOGICAL Hx AIDS: No Hx Cancer: Yes (Non-hodgkins lymphoma, remission 12 years) Hx Chemotherapy: Yes Hx Human Immunodeficiency Virus (HIV): No - INTEGUMENTARY Hx Dermatological Problems: No Hx Basil Cell: No Hx Paz: No Hx Cellulitis: No Hx Eczema: No Hx Melanoma: No Hx Psoriasis: No Hx Squamous Cell: No - MUSCULOSKELETAL/RHEUMATOLOGICAL Hx Musculoskeletal Disorders: No Hx Falls: No - GASTROINTESTINAL Hx Gastrointestinal Disorders: Yes Hx Diverticulitis: Yes Hx Nausea: Yes Hx Vomiting: Yes - GENITOURINARY/GYNECOLOGICAL Hx Genitourinary Disorders: No Hx Sexually Transmitted Disorders: No - PSYCHIATRIC Hx Psychophysiologic Disorder: Yes Hx Depression: Yes Hx Substance Use: Yes (alcohol abuse) - SURGICAL HISTORY Hx Surgeries: No - ANESTHESIA Hx Anesthesia: No Hx Anesthesia Reactions: No Hx Malignant Hyperthermia: No Has any member of the family had a problem w/ anesthesia?: No Meds Allergies/Adverse Reactions: Allergies Allergy/AdvReac Type Severity Reaction Status Date / Time chlordiazepoxide Allergy agitation, Verified 05/01/18 11:38 [From Librium] nightmares - Medications Medications: Current Medications Acetaminophen (Tylenol 325mg Tab) 650 mg PO Q6 PRN PRN Reason: Pain, moderate (4-7) Chlordiazepoxide (Librium) 25 mg PO Q6 [facility] Enoxaparin Sodium (Lovenox) 40 mg SC DAILY [facility]; Protocol Famotidine (Pepcid) 20 mg PO DAILY [facility] Folic Acid (Folic Acid) 1 mg PO DAILY [facility] Last Admin: 11/06/18 18:27 Dose: 1 mg Potassium Chloride (Potassium Chloride 20 Meq/100 Ml) 100 mls @ 50 mls/hr IVPB Q2 [facility] Stop: 11/07/18 11:59 Levothyroxine Sodium (Synthroid) 100 mcg PO DAILY@0630 [facility] Last Admin: 11/07/18 05:37 Dose: 100 mcg Lorazepam (Ativan) 0.5 mg IVP Q4H PRN PRN Reason: Agitation Metoclopramide HCl (Reglan) 10 mg IVP Q6 PRN PRN Reason: Nausea/Vomiting Thiamine HCl (Vitamin B1 Tab) 100 mg PO DAILY [facility] Last Admin: 11/06/18 18:27 Dose: 100 mg Results - Vital Signs Recent Vital Signs: Last Vital Signs Temp 98.6 F 11/07/18 05:22 Pulse 88 11/07/18 05:22 Resp 18 11/07/18 05:22 BP 107/67 11/07/18 05:22 Pulse Ox 97 11/07/18 05:22 - Labs Result Diagrams: 11/06/18 08:42 11/07/18 04:45 Labs: Laboratory Results - last 24 hr 11/06/18 11/06/18 11/07/18 08:42 08:42 00:41 WBC 6.1 RBC 3.85 Hgb 12.8 Hct 37.0 MCV 96.0 MCH 33.1 H MCHC 34.5 RDW 14.0 Plt Count 261 MPV 7.1 L Neut % (Auto) 84.8 H Lymph % (Auto) 8.8 L [place] % (Auto) 5.5 Eos % (Auto) 0.1 Baso % (Auto) 0.8 Neut # (Auto) 5.2 Lymph # (Auto) 0.5 L [place] # (Auto) 0.3 Eos # (Auto) 0.0 Baso # (Auto) 0.1 Neutrophils % (Manual) 86 H Lymphocytes % (Manual) 9 L Monocytes % (Manual) 4 Basophils % (Manual) 1 Platelet Estimate Normal RBC Morphology Normal Sodium 136 Potassium 3.6 Chloride 96 L Carbon Dioxide 26 Anion Gap 18 BUN 22 H Creatinine 0.8 Est GFR ( Amer) > 60 Est GFR (Non-Af Amer) > 60 Random Glucose 121 H Calcium 9.9 Magnesium Total Bilirubin 0.8 AST 56 H D ALT 45 Alkaline Phosphatase 73 Troponin I < 0.0120 Total Protein 7.9 Albumin 4.6 Globulin 3.3 Albumin/Globulin Ratio 1.4 Triglycerides Cholesterol LDL Cholesterol Direct HDL Cholesterol Lipase Thyroxine (T4) 3.25 L TSH 3rd Generation 14.30 H Urine Opiates Screen Negative Urine Methadone Screen Negative Ur Barbiturates Screen Negative Ur Phencyclidine Scrn Negative Ur Amphetamines Screen Negative U Benzodiazepines Scrn Negative U Oth Cocaine Metabols Negative U Cannabinoids Screen Negative Alcohol, Quantitative < 10 11/07/18 04:45 WBC RBC Hgb Hct MCV MCH MCHC RDW Plt Count MPV Neut % (Auto) Lymph % (Auto) [place] % (Auto) Eos % (Auto) Baso % (Auto) Neut # (Auto) Lymph # (Auto) [place] # (Auto) Eos # (Auto) Baso # (Auto) Neutrophils % (Manual) Lymphocytes % (Manual) Monocytes % (Manual) Basophils % (Manual) Platelet Estimate RBC Morphology Sodium 135 Potassium 2.9 L Chloride 103 Carbon Dioxide 25 Anion Gap 10 BUN 10 Creatinine 0.8 Est GFR ( Amer) > 60 Est GFR (Non-Af Amer) > 60 Random Glucose 108 H Calcium 9.1 Magnesium 1.6 Total Bilirubin 0.9 AST 45 H ALT 34 Alkaline Phosphatase 64 Troponin I Total Protein 6.3 Albumin 3.5 D Globulin 2.8 Albumin/Globulin Ratio 1.3 Triglycerides 200 H D Cholesterol 199 LDL Cholesterol Direct 68 HDL Cholesterol 115 H Lipase 108 Thyroxine (T4) 3.01 L TSH 3rd Generation 24.00 H Urine Opiates Screen Urine Methadone Screen Ur Barbiturates Screen Ur Phencyclidine Scrn Ur Amphetamines Screen U Benzodiazepines Scrn U Oth Cocaine Metabols U Cannabinoids Screen Alcohol, Quantitative
[2018-11-07] MEDS ORDERED: Potassium Chloride 20 mEq ER Tab PO STA (07:18)
[2018-11-07] MEDS ORDERED: Potassium Chloride 20 mEq 100 ML IVPB SCH (08:00)
--- NOTE | 2018-11-07 08:08 | CP.PCM.CON ---
History of Present Illness - History of Present Illness History of Present Illness: Psychiatry consult Garage Worker attempted to see patient, but patient refused to speak with technical publications writer, stating that she needs to leave the hospital. Past Patient History - Infectious Disease Hx of Infectious Diseases: None - Past Medical History & Family History Past Medical History?: Yes - Past Social History Smoking Status: Never Smoked - CARDIAC Hx Cardiac Disorders: No Hx Angina: No Hx Atrial Fibrillation: No Hx Cardia Arrhythmia: No Hx Circulatory Problems: No Hx Congestive Heart Failure: No Hx Heart Attack: No Hx Heart Murmur: No Hx Heart Transplant: No Hx Hypercholesterolemia: No Hx Hypertension: No Hx Hypotension: No Hx Internal Defibrillator: No Hx Mitral Valve Prolapse: No Hx Pacemaker: No Hx Peripheral Edema: No Hx Peripheral Vascular Disease: No - PULMONARY Hx Respiratory Disorders: No Hx Asthma: No Hx Bronchitis: No Hx Chronic Obstructive Pulmonary Disease (COPD): No Hx Emphysema: No Hx Lung Cancer: No Hx Pneumonia: No Hx Pulmonary Edema: No Hx Pulmonary Embolism: No Hx Respiratory Aspiration: No Hx Respiratory Tract Infection: No Hx Sleep Apnea: No Hx Tuberculosis: No - NEUROLOGICAL Hx Neurological Disorder: No Hx Seizures: No - HEENT Hx HEENT Problems: No - RENAL Hx Chronic Kidney Disease: No - ENDOCRINE/METABOLIC Hx Endocrine Disorders: Yes Hx Hypothyroidism: Yes - HEMATOLOGICAL/ONCOLOGICAL Hx AIDS: No Hx Cancer: Yes (Non-hodgkins lymphoma, remission 12 years) Hx Chemotherapy: Yes Hx Human Immunodeficiency Virus (HIV): No - INTEGUMENTARY Hx Dermatological Problems: No Hx Basil Cell: No Hx Paz: No Hx Cellulitis: No Hx Eczema: No Hx Melanoma: No Hx Psoriasis: No Hx Squamous Cell: No - MUSCULOSKELETAL/RHEUMATOLOGICAL Hx Musculoskeletal Disorders: No Hx Falls: No - GASTROINTESTINAL Hx Gastrointestinal Disorders: Yes Hx Diverticulitis: Yes Hx Nausea: Yes Hx Vomiting: Yes - GENITOURINARY/GYNECOLOGICAL Hx Genitourinary Disorders: No Hx Sexually Transmitted Disorders: No - PSYCHIATRIC Hx Psychophysiologic Disorder: Yes Hx Depression: Yes Hx Substance Use: Yes (alcohol abuse) - SURGICAL HISTORY Hx Surgeries: No - ANESTHESIA Hx Anesthesia: No Hx Anesthesia Reactions: No Hx Malignant Hyperthermia: No Has any member of the family had a problem w/ anesthesia?: No Meds Allergies/Adverse Reactions: Allergies Allergy/AdvReac Type Severity Reaction Status Date / Time chlordiazepoxide Allergy agitation, Verified 05/01/18 11:38 [From Librium] nightmares - Medications Medications: Current Medications Acetaminophen (Tylenol 325mg Tab) 650 mg PO Q6 PRN PRN Reason: Pain, moderate (4-7) Chlordiazepoxide (Librium) 25 mg PO Q6 [facility] Enoxaparin Sodium (Lovenox) 40 mg SC DAILY [facility]; Protocol Famotidine (Pepcid) 20 mg PO DAILY [facility] Folic Acid (Folic Acid) 1 mg PO DAILY [facility] Last Admin: 11/06/18 18:27 Dose: 1 mg Potassium Chloride (Potassium Chloride 20 Meq/100 Ml) 100 mls @ 50 mls/hr IVPB Q2 [facility] Stop: 11/07/18 11:59 Levothyroxine Sodium (Synthroid) 100 mcg PO DAILY@0630 [facility] Last Admin: 11/07/18 05:37 Dose: 100 mcg Lorazepam (Ativan) 0.5 mg IVP Q4H PRN PRN Reason: Agitation Metoclopramide HCl (Reglan) 10 mg IVP Q6 PRN PRN Reason: Nausea/Vomiting Thiamine HCl (Vitamin B1 Tab) 100 mg PO DAILY [facility] Last Admin: 11/06/18 18:27 Dose: 100 mg Results - Vital Signs Recent Vital Signs: Last Vital Signs Temp 98.6 F 11/07/18 05:22 Pulse 88 11/07/18 05:22 Resp 18 11/07/18 05:22 BP 107/67 11/07/18 05:22 Pulse Ox 97 11/07/18 05:22 - Labs Result Diagrams: 11/06/18 08:42 11/07/18 04:45 Labs: Laboratory Results - last 24 hr 11/06/18 11/06/18 11/07/18 08:42 08:42 00:41 WBC 6.1 RBC 3.85 Hgb 12.8 Hct 37.0 MCV 96.0 MCH 33.1 H MCHC 34.5 RDW 14.0 Plt Count 261 MPV 7.1 L Neut % (Auto) 84.8 H Lymph % (Auto) 8.8 L [place] % (Auto) 5.5 Eos % (Auto) 0.1 Baso % (Auto) 0.8 Neut # (Auto) 5.2 Lymph # (Auto) 0.5 L [place] # (Auto) 0.3 Eos # (Auto) 0.0 Baso # (Auto) 0.1 Neutrophils % (Manual) 86 H Lymphocytes % (Manual) 9 L Monocytes % (Manual) 4 Basophils % (Manual) 1 Platelet Estimate Normal RBC Morphology Normal Sodium 136 Potassium 3.6 Chloride 96 L Carbon Dioxide 26 Anion Gap 18 BUN 22 H Creatinine 0.8 Est GFR ( Amer) > 60 Est GFR (Non-Af Amer) > 60 Random Glucose 121 H Calcium 9.9 Magnesium Total Bilirubin 0.8 AST 56 H D ALT 45 Alkaline Phosphatase 73 Troponin I < 0.0120 Total Protein 7.9 Albumin 4.6 Globulin 3.3 Albumin/Globulin Ratio 1.4 Triglycerides Cholesterol LDL Cholesterol Direct HDL Cholesterol Lipase Thyroxine (T4) 3.25 L TSH 3rd Generation 14.30 H Urine Opiates Screen Negative Urine Methadone Screen Negative Ur Barbiturates Screen Negative Ur Phencyclidine Scrn Negative Ur Amphetamines Screen Negative U Benzodiazepines Scrn Negative U Oth Cocaine Metabols Negative U Cannabinoids Screen Negative Alcohol, Quantitative < 10 11/07/18 04:45 WBC RBC Hgb Hct MCV MCH MCHC RDW Plt Count MPV Neut % (Auto) Lymph % (Auto) [place] % (Auto) Eos % (Auto) Baso % (Auto) Neut # (Auto) Lymph # (Auto) [place] # (Auto) Eos # (Auto) Baso # (Auto) Neutrophils % (Manual) Lymphocytes % (Manual) Monocytes % (Manual) Basophils % (Manual) Platelet Estimate RBC Morphology Sodium 135 Potassium 2.9 L Chloride 103 Carbon Dioxide 25 Anion Gap 10 BUN 10 Creatinine 0.8 Est GFR ( Amer) > 60 Est GFR (Non-Af Amer) > 60 Random Glucose 108 H Calcium 9.1 Magnesium 1.6 Total Bilirubin 0.9 AST 45 H ALT 34 Alkaline Phosphatase 64 Troponin I Total Protein 6.3 Albumin 3.5 D Globulin 2.8 Albumin/Globulin Ratio 1.3 Triglycerides 200 H D Cholesterol 199 LDL Cholesterol Direct 68 HDL Cholesterol 115 H Lipase 108 Thyroxine (T4) 3.01 L TSH 3rd Generation 24.00 H Urine Opiates Screen Urine Methadone Screen Ur Barbiturates Screen Ur Phencyclidine Scrn Ur Amphetamines Screen U Benzodiazepines Scrn U Oth Cocaine Metabols U Cannabinoids Screen Alcohol, Quantitative
[2018-11-07 08:16] VITALS: BP 129/85; PULSE 96; TEMP 98.1; O2SAT 98
[2018-11-07] MEDS: Potassium Chloride 20 mEq ER Tab PO ONE ×2 (08:18→08:26)
[2018-11-07] MEDS ORDERED: Enoxaparin 40 mg Syringe SC SCH (09:00)
--- NOTE | 2018-11-07 19:06 | PN ---
DATE: 11/07/2018 ENDOCRINOLOGY FOLLOWUP NOTE LOCATION: In room 410. SUBJECTIVE: This is a 58-year-old female with recent acute alcoholic intoxication and withdrawal symptoms on admission and now also being followed closely for metabolic management of recent overt hypothyroidism as noted thereof. Her repeat thyroid studies today showed a T4 of 3.01 with a TSH of 24. which is actually higher than the initial admitting numbers. LABORATORY DATA: Her chemistry showed a BUN of 10, sodium 135, potassium 2.9, chloride 103, CO2 of 25, glucose 106 and creatinine 0.8. Cortisol level is 8.5 mcg/dL. ASSESSMENT: This is a 58-year-old female with overt hypothyroidism noted both historically, clinically and biochemically related to a subtherapeutic hormonal replacement therapy as given. She presents here with acute alcoholic intoxication in the background of chronic alcoholism as noted thereof. PLAN OF MANAGEMENT: We will titrate as ordered for today a higher dosing of the levothyroxine given as 100 mcg daily to start this morning as ordered. We will obtain serial thyroid studies and titrate her dose regimen accordingly. We will also obtain serial chemistries, especially potassium supplementation because of the recent vomiting episodes related to the recent alcoholic intoxication as noted thereof. We will obtain serial chemistries and supplement accordingly as needed. We will also continue the IV hydration as ordered. We will follow up. Belem Mancilla MD [facility] # [phone]
== END 2018-11-07 10:06 | disposition left against medical advice (07) | DRG 894 ==
LOC: H.ER 08:06 → H.ERHOLD 15:41 → OBSVTOIN 15:41 → H.TEL 17:20
PROVIDERS: ADMIT Internal Medicine; ATTEND Internal Medicine
DX: F10.239 Alcohol dependence with withdrawal, unspecified (principal); E03.9 Hypothyroidism, unspecified; Z85.72 Personal history of non-Hodgkin lymphomas; Z79.890 Hormone replacement therapy; I45.81 Long QT syndrome; Z92.21 Personal history of antineoplastic chemotherapy; F32.9 Major depressive disorder, single episode, unspecified; Y90.0 Blood alcohol level of less than 20 mg/100 ml

== ENCOUNTER 2019-01-01 17:36 | Observation (INO) | payer BC ==
[2019-01-01 17:36] VITALS: BMI 25.0
[2019-01-01] MEDS ORDERED: Multivitamin (MVI) 10 ML, Thiamine 100 MG, Folic Acid 1 MG in Sodium Chloride 0.9% 1,00... IV ONE (18:52)
--- NOTE | 2019-01-01 19:52 | ED PDOC ---
HPI: Psych/Substance Abuse Time Seen by Provider: 01/01/19 18:34 Chief Complaint (Nursing): Alcohol Ingestion Chief Complaint (Provider): Alcohol intoxication History Per: Patient, Family Modifying Factor(s): Alcohol Additional Complaint(s): Patient brought to ER by boyfriend due to alcohol intoxication. Per boyfriend, patient has been drinking for the past 30 days, with last drink at 2:30p today. He states patient was supposed to go to rehab in [facility] today but refused to go. At this time, patient is awake, alert and oriented x 3 and offers no medical complaints. No SI or HI. Past Medical History Reviewed: Historical Data, Nursing Documentation, Vital Signs Vital Signs: Last Vital Signs Temp 98.3 F 01/01/19 18:21 Pulse 102 H 01/01/19 18:21 Resp 16 01/01/19 18:21 BP 118/78 01/01/19 18:21 Pulse Ox 94 L 01/01/19 18:21 Primary Care Provider: NVAIN INFANTE - Medical History PMH: Depression, Diverticulitis, Hypothyroidism, Malignancy (lymphoma) Denies: Asthma, Atrial Fibrillation, Bronchitis, CAD, Cardia Arrhythmia, CHF, COPD, Diabetes, Emphysema, Hepatitis, HIV, HTN, Hypercholesterolemia, Mitral Valve Prolapse, Peripheral Edema, Pneumonia, Pulmonary Embolism, Chronic Kidney Disease, Seizures, Sexually Transmitted Disease, Sleep Apnea - Surgical History Surgical History: Denies: Pacemaker - Family History Family History: States: Unknown Family Hx - Home Medications Home Medications: Ambulatory Orders Medication Instructions Recorded Lactobacillus Combination No.8 1 cap PO DAILY 11/06/18 [Adult Probiotic] Multivitamin [Multi-Vitamin Daily] 1 tab PO DAILY 11/06/18 Gabapentin [Neurontin] 100 mg PO TID #21 capsule 01/03/19 Levothyroxine [Synthroid] 75 mcg PO DAILY #30 tab 01/03/19 - Allergies Allergies/Adverse Reactions: Allergies Allergy/AdvReac Type Severity Reaction Status Date / Time chlordiazepoxide Allergy agitation, Verified 01/01/19 18:21 [From Librium] nightmares Review of Systems ROS Statement: Except As Marked, All Systems Reviewed And Found Negative Psych: Positive for: Other (alcohol intoxication). Negative for: Suicidal ideation Physical Exam - Reviewed Nursing Documentation Reviewed: Yes Vital Signs Reviewed: Yes - Physical Exam Appears: Positive for: No Acute Distress Head Exam: Positive for: ATRAUMATIC, NORMAL INSPECTION, NORMOCEPHALIC Skin: Positive for: Normal Color Eye Exam: Positive for: Normal appearance ENT: Positive for: Other (alcohol on breath) Neck: Positive for: Supple Cardiovascular/Chest: Positive for: Regular Rate, Rhythm Respiratory: Positive for: Normal Breath Sounds. Negative for: Respiratory Dis tress Gastrointestinal/Abdominal: Positive for: Soft Back: Positive for: Normal Inspection Extremity: Positive for: Normal ROM Neurological/Psych: Positive for: Awake, Alert, Normal Tone, Oriented (x 3), Other (no slurred speech) - Laboratory Results Result Diagrams: 01/01/19 19:50 01/01/19 19:50 - ECG O2 Sat by Pulse Oximetry: 94 (RA) Medical Decision Making Medical Decision Making: Impression: Alcohol intoxication Plan: -- Labs -- Urinalysis -- IV Fluids Scribe Attestation: Documented by Neema Marx acting as a scribe for Shari Ellis MD. Provider Scribe Attestation: All medical record entries made by the Scribe were at my direction and personally dictated by me. I have reviewed the chart and agree that the record accurately reflects my personal performance of the history, physical exam, medical decision making, and the department course for this patient. I have also personally directed, reviewed, and agree with the discharge instructions and disposition. Disposition - Clinical Impression Clinical Impression: Alcohol abuse with intoxication, Chest pain - Patient ED Disposition Is Patient to be Admitted: Yes - Disposition Disposition Time: 00:20 Condition: STABLE - Pt Status Changed To: Hospital Disposition Of: Observation - POA Present On Arrival: None
[2019-01-01 19:53] LABS: BASO # 0.1 K/uL (0.0-0.2); BASO % 1.1 % (0.0-2.0); EOS # 0.1 K/uL (0.0-0.7); EOS % 0.9 % (0.0-4.0); HEMOGLOBIN 12.9 g/dL (12.0-16.0); LYMPH # 1.2 K/uL (1.0-4.3); LYMPH % 16.3 % (20.0-40.0); MEAN CELL VOLUME 102.2 fl (81.0-99.0); MEAN CORPUSCULAR HEMOGLOBIN 34.6 pg (27.0-31.0); MEAN CORPUSCULAR HGB CONC 33.8 g/dL (33.0-37.0); MEAN PLATELET VOLUME 6.6 fl (7.2-11.7); MONO # 0.4 K/uL (0.0-0.8); MONO % 5.5 % (0.0-10.0); NEUT # 5.4 K/uL (1.8-7.0); NEUT % 76.2 % (50.0-75.0); NRBC % 0.1 % (0.0-0.0); RBC 3.74 Mil/uL (3.80-5.20); RED CELL DISTRIBUTION WIDTH 16.4 % (11.5-14.5); WHITE BLOOD COUNT 7.1 K/uL (4.8-10.8)
[2019-01-01 20:08] LABS: ALB/GLOB RATIO 1.5 (1.0-2.1); ALT/SGPT 85 U/L (9-52); AST/SGOT 126 U/L (14-36); BLOOD UREA NITROGEN 10 mg/dl (7-17); CALCIUM 9.4 mg/dL (8.4-10.2); GFR NON-AFRICAN AMERICAN > 60
[2019-01-02] MEDS: Sodium Chloride 0.9% 1,000 ML IV SCH ×2 (09:36→20:52)
--- NOTE | 2019-01-02 09:36 | CP.PCM.HP ---
<Bam Bennett - Last Filed: 01/02/19 11:25> History of Present Illness - History of Present Illness History of Present Illness: This is 58 y/o F with PMH of Alcohol use disorder/Withdrawal/Relapses, Hypothyroid and Lymphoma (Large B cell, S/p RT and Chemo in 2005, in remission) admitted for evaluation and treatment of alcohol intoxication/withdrawal/abuse, chest pain and anxiety. Patient presented to ER with boyfriend c/o "I am having alcohol withdrawal", reports her last drink was >12 hours before, started feeling sweaty, upper extremities tremors and n/v since last few hours (1-2 episodes of NBNB vomiting). Patient reports she is a "binge alcoholic", she hasn't taken her thyroid medication for longtime. Patient denies any auditory or visual hallucination, SI/HI, palpitations, chest pain, visual changes, diarrhea, abdominal pain or urinary symptoms. PMH:Alcohol use disorder/Withdrawal/Relapses, Hypothyroid and Lymphoma (Large B cell, S/p RT and Chemo in 2005, in remission) PSH: Denies Allg: Librium (Gets angry after librium) Meds: Levothyroxin FH: Dad: Colon cancer, Mother: WILRFEDO SH: binge alcoholic, Denies any smoking or illicit drug use ROS: As above Present on Admission - Present on Admission Any Indicators Present on Admission: No Review of Systems - Constitutional Constitutional: Headache - EENT Eyes: absent: Blurred Vision Ears: Dizziness Nose/Mouth/Throat: absent: Sinus Pressure - Cardiovascular Cardiovascular: Chest Pain - Respiratory Respiratory: absent: Cough, Dyspnea, Hemoptysis - Gastrointestinal Gastrointestinal: Nausea, Vomiting. absent: Abdominal Pain, Constipation, Diarrhea - Genitourinary Genitourinary: absent: Change in Urinary Stream, Dysuria - Musculoskeletal Musculoskeletal: absent: Joint Swelling, Numbness, Stiffness, Tingling - Integumentary Integumentary: absent: Dry Skin, Rash - Neurological Neurological: Dizziness, Tremor. absent: Sensory Deficit - Psychiatric Psychiatric: Anxiety. absent: Depression, Hopelessness, Suicidal Ideation, Visual Hallucinations, Tactile Hallucinations - Endocrine Endocrine: absent: Heat Intolorance, Palpitations, Polydipsia, Polyphagia, Polyuria - Hematologic/Lymphatic Hematologic: absent: Easy Bleeding Past Patient History - Infectious Disease Hx of Infectious Diseases: None - Past Medical History & Family History Past Medical History?: Yes - Past Social History Smoking Status: Never Smoked - CARDIAC Hx Atrial Fibrillation: No Hx Cardia Arrhythmia: No Hx Congestive Heart Failure: No Hx Hypercholesterolemia: No Hx Hypertension: No Hx Mitral Valve Prolapse: No Hx Pacemaker: No Hx Peripheral Edema: No - PULMONARY Hx Asthma: No Hx Bronchitis: No Hx Chronic Obstructive Pulmonary Disease (COPD): No Hx Emphysema: No Hx Pneumonia: No Hx Pulmonary Embolism: No Hx Sleep Apnea: No - NEUROLOGICAL Hx Seizures: No - HEENT Hx HEENT Problems: No - RENAL Hx Chronic Kidney Disease: No - ENDOCRINE/METABOLIC Hx Hypothyroidism: Yes - HEMATOLOGICAL/ONCOLOGICAL Hx Human Immunodeficiency Virus (HIV): No - INTEGUMENTARY Hx Dermatological Problems: No Hx Basil Cell: No Hx Paz: No Hx Cellulitis: No Hx Eczema: No Hx Melanoma: No Hx Psoriasis: No Hx Squamous Cell: No - MUSCULOSKELETAL/RHEUMATOLOGICAL Hx Musculoskeletal Disorders: No Hx Falls: No - GASTROINTESTINAL Hx Diverticulitis: Yes - GENITOURINARY/GYNECOLOGICAL Hx Sexually Transmitted Disorders: No - PSYCHIATRIC Hx Depression: Yes - SURGICAL HISTORY Hx Surgeries: No - ANESTHESIA Hx Anesthesia: No Hx Anesthesia Reactions: No Hx Malignant Hyperthermia: No Meds Allergies/Adverse Reactions: Allergies Allergy/AdvReac Type Severity Reaction Status Date / Time chlordiazepoxide Allergy agitation, Verified 01/01/19 18:21 [From Librium] nightmares Physical Exam - Constitutional Appears: No Acute Distress - Head Exam Head Exam: NORMAL INSPECTION - Eye Exam Eye Exam: EOMI, Normal appearance, PERRL Pupil Exam: NORMAL ACCOMODATION - ENT Exam ENT Exam: Mucous Membranes Moist - Neck Exam Neck exam: Positive for: Normal Inspection - Respiratory Exam Respiratory Exam: Clear to Auscultation Bilateral, NORMAL BREATHING PATTERN - Cardiovascular Exam Cardiovascular Exam: REGULAR RHYTHM, +S1, +S2 - GI/Abdominal Exam GI & Abdominal Exam: Normal Bowel Sounds, Soft. absent: Tenderness - Extremities Exam Additional comments: upper extremity tremors - Back Exam Back exam: absent: CVA tenderness (L), CVA tenderness (R) - Neurological Exam Neurological exam: Alert, CN II-XII Intact, Oriented x3 Additional comments: CIWA 7 - Psychiatric Exam Psychiatric exam: Normal Affect - Skin Skin Exam: Normal Color Results - Vital Signs Recent Vital Signs: Last Vital Signs Temp 98.8 F 01/02/19 08:44 Pulse 95 H 01/02/19 08:44 Resp 16 01/02/19 08:44 BP 126/82 01/02/19 08:44 Pulse Ox 97 01/02/19 08:44 - Labs Result Diagrams: 01/01/19 19:50 01/01/19 19:50 Labs: Laboratory Results - last 24 hr 01/01/19 01/01/19 01/01/19 19:08 19:50 19:50 WBC 7.1 RBC 3.74 L Hgb 12.9 Hct 38.2 MCV 102.2 H D MCH 34.6 H MCHC 33.8 RDW 16.4 H Plt Count 169 MPV 6.6 L Neut % (Auto) 76.2 H Lymph % (Auto) 16.3 L [place] % (Auto) 5.5 Eos % (Auto) 0.9 Baso % (Auto) 1.1 Neut # (Auto) 5.4 Lymph # (Auto) 1.2 [place] # (Auto) 0.4 Eos # (Auto) 0.1 Baso # (Auto) 0.1 Sodium 140 Potassium 4.1 Chloride 100 Carbon Dioxide 23 Anion Gap 21 H BUN 10 Creatinine 0.7 Est GFR ( Amer) > 60 Est GFR (Non-Af Amer) > 60 POC Glucose (mg/dL) 74 Random Glucose 73 Calcium 9.4 Total Bilirubin 0.5 AST 126 H D ALT 85 H D Alkaline Phosphatase 82 Troponin I Total Protein 8.3 H Albumin 5.0 D Globulin 3.3 Albumin/Globulin Ratio 1.5 TSH 3rd Generation 19.40 H Alcohol, Quantitative 292 H 01/01/19 23:44 WBC RBC Hgb Hct MCV MCH MCHC RDW Plt Count MPV Neut % (Auto) Lymph % (Auto) [place] % (Auto) Eos % (Auto) Baso % (Auto) Neut # (Auto) Lymph # (Auto) [place] # (Auto) Eos # (Auto) Baso # (Auto) Sodium Potassium Chloride Carbon Dioxide Anion Gap BUN Creatinine Est GFR ( Amer) Est GFR (Non-Af Amer) POC Glucose (mg/dL) Random Glucose Calcium Total Bilirubin AST ALT Alkaline Phosphatase Troponin I < 0.0120 Total Protein Albumin Globulin Albumin/Globulin Ratio TSH 3rd Generation Alcohol, Quantitative Assessment & Plan - Assessment and Plan (Free Text) Assessment: A/P: 58 y/o F with PMH of Alcohol use disorder/Withdrawal/Relapses, Hypothyroid and Lymphoma (Large B cell, S/p RT and Chemo in 2005, in remission) admitted for evaluation and treatment of alcohol intoxication/withdrawal/abuse, chest pain and anxiety. Chest pain, likely related to Anxiety vs Alcohol, r/o ACS - EKG reviewed: Chronic QT prolongation - Trop negative x1, f/u one more trop - F/u morning EKG - Cardiology consult for Prolonged QT Anxiety, Chronic, Uncontrolled/may be related to Alcohol - Consult Psych, f/u recommendations - Ativan PRN (Alcohol withdrawal) QT prolongation on EKG, likely 2/2 alcohol use/withdrawal - Repeat EKG in morning - Cardio consult, f/u recommendations Alcohol intoxication/withdrawal/abuse - CIWA Protocol - Ativan for CIWA > 8 - Monitor for withdrawal symptoms - Consult Pscy for alcohol dependence - Start Thiamin and Folate - F/u labs - C/w IVF Hypothyroid, Chronic, Uncontrolled, Non-Compliance - START Levothyroxin 75mcg - Outpatient f/u recommended to the patient Nausea and Vomiting - C/w Reglan (No zofran, QT prolonged) - Symptomatic management - IVF - Diet as tolerated DVT PPX: SCD, lovenox Case discussed with Dr. Morales, agrees with plan <Ike Morales - Last Filed: 01/02/19 11:55> Results - Vital Signs Recent Vital Signs: Last Vital Signs Temp 98.8 F 01/02/19 08:44 Pulse 95 H 01/02/19 08:44 Resp 16 01/02/19 08:44 BP 126/82 01/02/19 08:44 Pulse Ox 97 01/02/19 08:44 - Labs Result Diagrams: 01/01/19 19:50 01/01/19 19:50 Labs: Laboratory Results - last 24 hr 01/01/19 01/01/19 01/01/19 19:08 19:50 19:50 WBC 7.1 RBC 3.74 L Hgb 12.9 Hct 38.2 MCV 102.2 H D MCH 34.6 H MCHC 33.8 RDW 16.4 H Plt Count 169 MPV 6.6 L Neut % (Auto) 76.2 H Lymph % (Auto) 16.3 L [place] % (Auto) 5.5 Eos % (Auto) 0.9 Baso % (Auto) 1.1 Neut # (Auto) 5.4 Lymph # (Auto) 1.2 [place] # (Auto) 0.4 Eos # (Auto) 0.1 Baso # (Auto) 0.1 Sodium 140 Potassium 4.1 Chloride 100 Carbon Dioxide 23 Anion Gap 21 H BUN 10 Creatinine 0.7 Est GFR ( Amer) > 60 Est GFR (Non-Af Amer) > 60 POC Glucose (mg/dL) 74 Random Glucose 73 Calcium 9.4 Total Bilirubin 0.5 AST 126 H D ALT 85 H D Alkaline Phosphatase 82 Troponin I Total Protein 8.3 H Albumin 5.0 D Globulin 3.3 Albumin/Globulin Ratio 1.5 TSH 3rd Generation 19.40 H Urine Color Urine Clarity Urine pH Ur Specific Sandy Urine Protein Urine Glucose (UA) Urine Ketones Urine Blood Urine Nitrate Urine Bilirubin Urine Urobilinogen Ur Leukocyte Esterase Urine RBC (Auto) Urine Microscopic WBC Ur Squamous Epith Cells Alcohol, Quantitative 292 H HIV-1 Ab Rapid Screen 01/01/19 01/02/19 01/02/19 23:44 10:25 10:25 WBC RBC Hgb Hct MCV MCH MCHC RDW Plt Count MPV Neut % (Auto) Lymph % (Auto) [place] % (Auto) Eos % (Auto) Baso % (Auto) Neut # (Auto) Lymph # (Auto) [place] # (Auto) Eos # (Auto) Baso # (Auto) Sodium Potassium Chloride Carbon Dioxide Anion Gap BUN Creatinine Est GFR ( Amer) Est GFR (Non-Af Amer) POC Glucose (mg/dL) Random Glucose Calcium Total Bilirubin AST ALT Alkaline Phosphatase Troponin I < 0.0120 < 0.0120 Total Protein Albumin Globulin Albumin/Globulin Ratio TSH 3rd Generation Urine Color Urine Clarity Urine pH Ur Specific Sandy Urine Protein Urine Glucose (UA) Urine Ketones Urine Blood Urine Nitrate Urine Bilirubin Urine Urobilinogen Ur Leukocyte Esterase Urine RBC (Auto) Urine Microscopic WBC Ur Squamous Epith Cells Alcohol, Quantitative HIV-1 Ab Rapid Screen Non reactive 01/02/19 11:15 WBC RBC Hgb Hct MCV MCH MCHC RDW Plt Count MPV Neut % (Auto) Lymph % (Auto) [place] % (Auto) Eos % (Auto) Baso % (Auto) Neut # (Auto) Lymph # (Auto) [place] # (Auto) Eos # (Auto) Baso # (Auto) Sodium Potassium Chloride Carbon Dioxide Anion Gap BUN Creatinine Est GFR ( Amer) Est GFR (Non-Af Amer) POC Glucose (mg/dL) Random Glucose Calcium Total Bilirubin AST ALT Alkaline Phosphatase Troponin I Total Protein Albumin Globulin Albumin/Globulin Ratio TSH 3rd Generation Urine Color Yellow Urine Clarity Clear Urine pH 5.0 Ur Specific Sandy 1.017 Urine Protein 30 Urine Glucose (UA) Neg Urine Ketones 80 Urine Blood Moderate Urine Nitrate Negative Urine Bilirubin Negative Urine Urobilinogen 0.2-1.0 Ur Leukocyte Esterase Neg Urine RBC (Auto) 4 H Urine Microscopic WBC 1 Ur Squamous Epith Cells < 1 Alcohol, Quantitative HIV-1 Ab Rapid Screen Assessment & Plan - Assessment and Plan (Free Text) Assessment: Patient was personally seen and examined by me in rounds with residents. Available labs and diagnostic data reviewed. Case, Patient's condition and management plan discussed with residents in rounds. Agree with resident's progress note. Plan: As ordered.
[2019-01-02] MEDS: Levothyroxine 75 MCG TAB PO SCH (10:35)
--- NOTE | 2019-01-02 11:23 | CARD ---
APPROVED REPORT Date of service: 01/01/2019 EKG Measurement Heart [id number] <Conclusion> Normal sinus rhythm Low voltage QRS Markedly prolonged QT Abnormal ECG
[2019-01-02 11:27] LABS: SQUAMOUS EPITHIAL < 1 /hpf (0-5); URINE BILIRUBIN NEGATIVE (NEGATIVE); URINE BLOOD MODERATE (NEGATIVE); URINE CLARITY CLEAR (Clear); URINE COLOR YELLOW (YELLOW); URINE GLUCOSE (UA) NEG (NEGATIVE); URINE LEUKOCYTE ESTERASE NEG Leu/uL (Negative); URINE PROTEIN 30 mg/dL (NEGATIVE); URINE UROBILINOGEN 0.2-1.0 mg/dL (0.2-1.0)
[2019-01-02 17:14] LABS: HEPATITIS B SURFACE AG Negative (NEGATIVE)
[2019-01-02 17:19] LABS: HEPATITIS B CORE AB NEGATIVE (NEGATIVE)
[2019-01-02 17:32] LABS: HEPATITIS C ANTIBODY NEGATIVE (NEGATIVE)
[2019-01-03] MEDS: Sodium Chloride 0.9% 1,000 ML IV SCH (02:00)
[2019-01-03] MEDS ORDERED: Levothyroxine 75 MCG TAB PO SCH (06:30)
[2019-01-03] MEDS ORDERED: Enoxaparin 40 mg Syringe SC SCH (09:00)
[2019-01-03] MEDS ORDERED: Multivitamin With Minerals Tab PO SCH (09:00)
[2019-01-03] MEDS: Levothyroxine 75 MCG TAB PO SCH (09:09)
--- NOTE | 2019-01-03 10:41 | CP.PCM.CON ---
History of Present Illness - History of Present Illness History of Present Illness: 58 y/o female admitted with alcohol withdrawal Cardiology consult is called because of prolonged QT interval on EKG pt has had this for years She denies any history of cardiac problems or hypertension Denies chest pain, shortness of breath, syncope, vertigo or palpitations The prolonged QT interval is secondary to patient's alcohol withdrawal and/or hypothyroid No treatment necessary Past Patient History - Infectious Disease Hx of Infectious Diseases: None - Past Medical History & Family History Past Medical History?: Yes - Past Social History Smoking Status: Never Smoked - CARDIAC Hx Cardiac Disorders: No Hx Atrial Fibrillation: No Hx Cardia Arrhythmia: No Hx Congestive Heart Failure: No - PULMONARY Hx Respiratory Disorders: No - NEUROLOGICAL Hx Neurological Disorder: No Hx Seizures: No - HEENT Hx HEENT Problems: No - RENAL Hx Chronic Kidney Disease: No - ENDOCRINE/METABOLIC Hx Endocrine Disorders: Yes Hx Hypothyroidism: Yes - HEMATOLOGICAL/ONCOLOGICAL Hx Blood Disorders: No Hx Human Immunodeficiency Virus (HIV): No - INTEGUMENTARY Hx Dermatological Problems: No - MUSCULOSKELETAL/RHEUMATOLOGICAL Hx Musculoskeletal Disorders: No Hx Falls: No - GASTROINTESTINAL Hx Gastrointestinal Disorders: No - GENITOURINARY/GYNECOLOGICAL Hx Genitourinary Disorders: No - PSYCHIATRIC Hx Psychophysiologic Disorder: No Hx Substance Use: No - SURGICAL HISTORY Hx Surgeries: No - ANESTHESIA Hx Anesthesia: No Hx Anesthesia Reactions: No Hx Malignant Hyperthermia: No Has any member of the family had a problem w/ anesthesia?: No Meds Allergies/Adverse Reactions: Allergies Allergy/AdvReac Type Severity Reaction Status Date / Time chlordiazepoxide Allergy agitation, Verified 01/01/19 18:21 [From Librium] nightmares - Medications Medications: Current Medications Acetaminophen (Tylenol 325mg Tab) 650 mg PO Q6 PRN PRN Reason: Pain, moderate (4-7) Acetaminophen (Tylenol 325mg Tab) 650 mg PO Q6 PRN PRN Reason: Fever >100.4 F Enoxaparin Sodium (Lovenox) 40 mg SC DAILY [facility]; Protocol Last Admin: 01/03/19 09:09 Dose: 40 mg Famotidine (Pepcid) 20 mg PO DAILY [facility] Last Admin: 01/03/19 09:08 Dose: 20 mg Folic Acid (Folic Acid) 1 mg PO DAILY [facility] Last Admin: 01/03/19 09:08 Dose: 1 mg Levothyroxine Sodium (Synthroid) 75 mcg PO DAILY@0630 [facility] Last Admin: 01/03/19 09:09 Dose: 75 mcg Lorazepam (Ativan) 0.5 mg IVP Q4 PRN PRN Reason: Anxiety Last Admin: 01/03/19 04:49 Dose: 0.5 mg Metoclopramide HCl (Reglan) 10 mg IVP Q6 PRN PRN Reason: Nausea/Vomiting Multivitamins/Minerals (Therapeutic-M Tab) 1 tab PO DAILY [facility] Last Admin: 01/03/19 09:08 Dose: 1 tab Thiamine HCl (Vitamin B1 Tab) 100 mg PO DAILY [facility] Last Admin: 01/03/19 09:08 Dose: 100 mg Results - Vital Signs Recent Vital Signs: Last Vital Signs Temp 98.3 F 01/03/19 08:03 Pulse 92 H 01/03/19 08:03 Resp 18 01/03/19 08:03 BP 114/77 01/03/19 08:03 Pulse Ox 96 01/03/19 08:03 - Labs Result Diagrams: 01/01/19 19:50 01/01/19 19:50 Labs: Laboratory Results - last 24 hr 01/02/19 01/02/19 01/02/19 10:25 10:25 10:25 Troponin I < 0.0120 Urine Color Urine Clarity Urine pH Ur Specific [place] Urine Protein Urine Glucose (UA) Urine Ketones Urine Blood Urine Nitrate Urine Bilirubin Urine Urobilinogen Ur Leukocyte Esterase Urine RBC (Auto) Urine Microscopic WBC Ur Squamous Epith Cells RPR Hep Bs Antigen Negative Hep Bs Antibody Negative Hep B Core IgM Ab Negative Hepatitis C Antibody Negative HIV-1 Ab Rapid Screen 01/02/19 01/02/19 01/02/19 10:25 10:25 11:15 Troponin I Urine Color Yellow Urine Clarity Clear Urine pH 5.0 Ur Specific [place] 1.017 Urine Protein 30 Urine Glucose (UA) Neg Urine Ketones 80 Urine Blood Moderate Urine Nitrate Negative Urine Bilirubin Negative Urine Urobilinogen 0.2-1.0 Ur Leukocyte Esterase Neg Urine RBC (Auto) 4 H Urine Microscopic WBC 1 Ur Squamous Epith Cells < 1 RPR Nonreactive Hep Bs Antigen Hep Bs Antibody Hep B Core IgM Ab Hepatitis C Antibody HIV-1 Ab Rapid Screen Non reactive
--- NOTE | 2019-01-03 14:35 | CP.PCM.CON ---
History of Present Illness - History of Present Illness History of Present Illness: consult requested for anxiety This is 58 y/o F with PMH of Alcohol use disorder/Withdrawal/Relapses, Hypothyroid and Lymphoma (Large B cell, S/p RT and Chemo in 2005, in remission) admitted for evaluation and treatment of alcohol intoxication/withdrawal/abuse, chest pain and anxiety. pt on evaluation reported that she has been in therapy in the past but has no formal history of psychiatric hospitalization or treatment she reported she started using more alcohol after being diagnosed with cancer at current time she uses alcohol in a binging pattern, stated she is anxious as she is being evicted from her apartment and has no where to stay , pt denied any current changes in sleep or appetite denied perceptual disturbances, deneid suicidal or homicidal ideation. alert awake oriented to person place and time Past Patient History - Infectious Disease Hx of Infectious Diseases: None - Past Medical History & Family History Past Medical History?: Yes - Past Social History Smoking Status: Never Smoked - CARDIAC Hx Cardiac Disorders: No Hx Atrial Fibrillation: No Hx Cardia Arrhythmia: No Hx Congestive Heart Failure: No - PULMONARY Hx Respiratory Disorders: No - NEUROLOGICAL Hx Neurological Disorder: No Hx Seizures: No - HEENT Hx HEENT Problems: No - RENAL Hx Chronic Kidney Disease: No - ENDOCRINE/METABOLIC Hx Endocrine Disorders: Yes Hx Hypothyroidism: Yes - HEMATOLOGICAL/ONCOLOGICAL Hx Blood Disorders: No Hx Human Immunodeficiency Virus (HIV): No - INTEGUMENTARY Hx Dermatological Problems: No - MUSCULOSKELETAL/RHEUMATOLOGICAL Hx Musculoskeletal Disorders: No Hx Falls: No - GASTROINTESTINAL Hx Gastrointestinal Disorders: No - GENITOURINARY/GYNECOLOGICAL Hx Genitourinary Disorders: No - PSYCHIATRIC Hx Psychophysiologic Disorder: No Hx Substance Use: No - SURGICAL HISTORY Hx Surgeries: No - ANESTHESIA Hx Anesthesia: No Hx Anesthesia Reactions: No Hx Malignant Hyperthermia: No Has any member of the family had a problem w/ anesthesia?: No Meds Allergies/Adverse Reactions: Allergies Allergy/AdvReac Type Severity Reaction Status Date / Time chlordiazepoxide Allergy agitation, Verified 01/01/19 18:21 [From Librium] nightmares - Medications Medications: Current Medications Acetaminophen (Tylenol 325mg Tab) 650 mg PO Q6 PRN PRN Reason: Pain, moderate (4-7) Acetaminophen (Tylenol 325mg Tab) 650 mg PO Q6 PRN PRN Reason: Fever >100.4 F Enoxaparin Sodium (Lovenox) 40 mg SC DAILY [facility]; Protocol Last Admin: 01/03/19 09:09 Dose: 40 mg Famotidine (Pepcid) 20 mg PO DAILY [facility] Last Admin: 01/03/19 09:08 Dose: 20 mg Folic Acid (Folic Acid) 1 mg PO DAILY [facility] Last Admin: 01/03/19 09:08 Dose: 1 mg Levothyroxine Sodium (Synthroid) 75 mcg PO DAILY@0630 [facility] Last Admin: 01/03/19 09:09 Dose: 75 mcg Lorazepam (Ativan) 0.5 mg IVP Q4 PRN PRN Reason: Anxiety Last Admin: 01/03/19 04:49 Dose: 0.5 mg Metoclopramide HCl (Reglan) 10 mg IVP Q6 PRN PRN Reason: Nausea/Vomiting Multivitamins/Minerals (Therapeutic-M Tab) 1 tab PO DAILY [facility] Last Admin: 01/03/19 09:08 Dose: 1 tab Thiamine HCl (Vitamin B1 Tab) 100 mg PO DAILY [facility] Last Admin: 01/03/19 09:08 Dose: 100 mg Results - Vital Signs Recent Vital Signs: Last Vital Signs Temp 98.3 F 01/03/19 08:03 Pulse 92 H 01/03/19 08:03 Resp 18 01/03/19 08:03 BP 114/77 01/03/19 08:03 Pulse Ox 96 01/03/19 08:03 - Labs Result Diagrams: 01/01/19 19:50 01/01/19 19:50 Labs: Laboratory Results - last 24 hr 01/02/19 01/02/19 01/02/19 10:25 10:25 10:25 RPR Nonreactive Hep Bs Antigen Negative Hep Bs Antibody Negative Hep B Core IgM Ab Negative Hepatitis C Antibody Negative Assessment & Plan - Assessment and Plan (Free Text) Assessment: alcohol use disorder alcohol induced anxiety disorder Plan: pt woud benefit from starting neurontin 100mg tid referral by social scientist to [facility] before discharge
--- NOTE | 2019-01-03 15:12 | CP.PCM.DIS ---
Provider - Provider Date of Admission: 01/02/19 05:38 Attending physician: Ike Morales MD Primary care physician: None Consults: 01/02/19 09:22 Psychiatry Consult Routine Comment: Consulting Provider: Markus Ghotra Consulting Physician: Markus Ghotra Reason for Consult: Anxiety, Alcohol use disorder 01/02/19 09:32 Cardiology Consult Routine Comment: Consulting Provider: Soham Jimenez Consulting Physician: Soham Jimenez Reason for Consult: Prolonged QT, may be due to alcohol, Hypothyroid 01/02/19 23:42 Social Work Referral Routine Comment: last drink 01/01 Physician Instructions: Reason For Exam: etoh abuse Time Spent in preparation of Discharge (in minutes): 40 Diagnosis - Discharge Diagnosis (1) Alcohol dependence with withdrawal Status: Acute Priority: High (2) Anxiety Status: Chronic (3) QT prolongation Status: Chronic (4) Hypothyroid Status: Chronic Hospital Course - Lab Results Lab Results: Most Recent Lab Values WBC 7.1 K/uL (4.8-10.8) 01/01/19 19:50 RBC 3.74 Mil/uL (3.80-5.20) L 01/01/19 19:50 Hgb 12.9 g/dL (12.0-16.0) 01/01/19 19:50 Hct 38.2 % (34.0-47.0) 01/01/19 19:50 MCV 102.2 fl (81.0-99.0) H D 01/01/19 19:50 MCH 34.6 pg (27.0-31.0) H 01/01/19 19:50 MCHC 33.8 g/dL (33.0-37.0) 01/01/19 19:50 RDW 16.4 % (11.5-14.5) H 01/01/19 19:50 Plt Count 169 K/uL (130-400) 01/01/19 19:50 MPV 6.6 fl (7.2-11.7) L 01/01/19 19:50 Neut % (Auto) 76.2 % (50.0-75.0) H 01/01/19 19:50 Lymph % (Auto) 16.3 % (20.0-40.0) L 01/01/19 19:50 [place] % (Auto) 5.5 % (0.0-10.0) 01/01/19 19:50 Eos % (Auto) 0.9 % (0.0-4.0) 01/01/19 19:50 Baso % (Auto) 1.1 % (0.0-2.0) 01/01/19 19:50 Neut # (Auto) 5.4 K/uL (1.8-7.0) 01/01/19 19:50 Lymph # (Auto) 1.2 K/uL (1.0-4.3) 01/01/19 19:50 [place] # (Auto) 0.4 K/uL (0.0-0.8) 01/01/19 19:50 Eos # (Auto) 0.1 K/uL (0.0-0.7) 01/01/19 19:50 Baso # (Auto) 0.1 K/uL (0.0-0.2) 01/01/19 19:50 Sodium 140 mmol/l (132-148) 01/01/19 19:50 Potassium 4.1 MMOL/L (3.6-5.0) 01/01/19 19:50 Chloride 100 mmol/L (98-107) 01/01/19 19:50 Carbon Dioxide 23 mmol/L (22-30) 01/01/19 19:50 Anion Gap 21 (10-20) H 01/01/19 19:50 BUN 10 mg/dl (7-17) 01/01/19 19:50 Creatinine 0.7 mg/dl (0.7-1.2) 01/01/19 19:50 Est GFR ( Amer) > 60 01/01/19 19:50 Est GFR (Non-Af Amer) > 60 01/01/19 19:50 POC Glucose (mg/dL) 74 mg/dL (65-110) 01/01/19 19:08 Random Glucose 73 mg/dL (65-105) 01/01/19 19:50 Calcium 9.4 mg/dL (8.4-10.2) 01/01/19 19:50 Total Bilirubin 0.5 mg/dl (0.2-1.3) 01/01/19 19:50 AST 126 U/L (14-36) H D 01/01/19 19:50 ALT 85 U/L (9-52) H D 01/01/19 19:50 Alkaline Phosphatase 82 U/L (38-126) 01/01/19 19:50 Troponin I < 0.0120 ng/mL (0.00-0.120) 01/02/19 10:25 Total Protein 8.3 G/DL (6.3-8.2) H 01/01/19 19:50 Albumin 5.0 g/dL (3.5-5.0) D 01/01/19 19:50 Globulin 3.3 gm/dL (2.2-3.9) 01/01/19 19:50 Albumin/Globulin Ratio 1.5 (1.0-2.1) 01/01/19 19:50 TSH 3rd Generation 19.40 mIU/ML (0.46-4.68) H 01/01/19 19:50 Urine Color Yellow (YELLOW) 01/02/19 11:15 Urine Clarity Clear (Clear) 01/02/19 11:15 Urine pH 5.0 (5.0-8.0) 01/02/19 11:15 Ur Specific [place] 1.017 (1.003-1.030) 01/02/19 11:15 Urine Protein 30 mg/dL (NEGATIVE) 01/02/19 11:15 Urine Glucose (UA) Neg mg/dL (NEGATIVE) 01/02/19 11:15 Urine Ketones 80 mg/dL (NEGATIVE) 01/02/19 11:15 Urine Blood Moderate (NEGATIVE) 01/02/19 11:15 Urine Nitrate Negative (NEGATIVE) 01/02/19 11:15 Urine Bilirubin Negative (NEGATIVE) 01/02/19 11:15 Urine Urobilinogen 0.2-1.0 mg/dL (0.2-1.0) 01/02/19 11:15 Ur Leukocyte Esterase Neg [place]/uL (Negative) 01/02/19 11:15 Urine RBC (Auto) 4 /hpf (0-3) H 01/02/19 11:15 Urine Microscopic WBC 1 /hpf (0-5) 01/02/19 11:15 Ur Squamous Epith Cells < 1 /hpf (0-5) 01/02/19 11:15 Alcohol, Quantitative 292 mg/dl (0-10) H 01/01/19 19:50 RPR Nonreactive (NONREACTIVE) 01/02/19 10:25 Hep Bs Antigen Negative (NEGATIVE) 01/02/19 10:25 Hep Bs Antibody Negative (NEGATIVE) 01/02/19 10:25 Hep B Core IgM Ab Negative (NEGATIVE) 01/02/19 10:25 Hepatitis C Antibody Negative (NEGATIVE) 01/02/19 10:25 HIV-1 Ab Rapid Screen Non reactive (NON REAC) 01/02/19 10:25 - Hospital Course Hospital Course: 58 y/o F with PMH of Alcohol use disorder/Withdrawal/Relapses, Hypothyroid and Lymphoma (Large B cell, S/p RT and Chemo in 2005, in remission) admitted for evaluation and treatment of alcohol intoxication/withdrawal/abuse, chest pain and anxiety.After admission, cardiology and psych consulted. EKG showed QT prolongation, negative Trops and Cleared by cardiology: QT prolongation due to Alcohol. Patient was seen by psych recommending Neurontin 300mg and [facility] f/u. Patient understands and agrees with plan. RX for neurontin 100mg tid and Levothyroxine given to the patient Discharge Exam - Head Exam Head Exam: NORMAL INSPECTION - Eye Exam Eye Exam: EOMI, Normal appearance Pupil Exam: NORMAL ACCOMODATION - ENT Exam ENT Exam: Mucous Membranes Moist - Respiratory Exam Respiratory Exam: Clear to PA & Lateral, NORMAL BREATHING PATTERN, UNREMARKABLE - Cardiovascular Exam Cardiovascular Exam: REGULAR RHYTHM, +S1, +S2 - GI/Abdominal Exam GI & Abdominal Exam: Normal Bowel Sounds, Soft. absent: Tenderness - Extremities Exam Extremities exam: normal inspection - Back Exam Back exam: NORMAL INSPECTION. absent: CVA tenderness (L), CVA tenderness (R) - Neurological Exam Neurological exam: Alert, CN II-XII Intact, Normal Gait, Oriented x3, Reflexes Normal - Psychiatric Exam Psychiatric exam: Normal Affect - Skin Skin Exam: Dry, Intact, Normal Color, Warm Discharge Plan - Discharge Medications Prescriptions: Gabapentin [Neurontin] 100 mg PO TID #21 capsule Levothyroxine [Synthroid] 75 mcg PO DAILY #30 tab - Follow Up Plan Condition: STABLE Disposition: HOME/ ROUTINE Instructions: Chest Pain (DC), Alcohol Abuse and Alcoholism (DC) Additional Instructions: CALL [facility] HOTLINE ADVISED. C/w Levothyroxine and neurontin 100mg 3times a day Avoid Alcohol F/u with [facility] as instructed by psych and social workers Referrals: Alcoholics Anonymous [Outside] Ike Morales MD [Staff Provider] -
[2019-01-03 15:59] VITALS: BP 123/82; PULSE 117; RESP 17; TEMP 99.4
[2019-01-04 16:55] VITALS: O2SAT 94
== END 2019-01-03 17:01 | disposition home or self-care (01) ==
LOC: H.ER 17:36 → H.ERHOLD 01-02 05:38 → H.TEL 01-02 22:47
PROVIDERS: ADMIT Internal Medicine; ATTEND Internal Medicine
DX: F10.229 Alcohol dependence with intoxication, unspecified (principal); F10.239 Alcohol dependence with withdrawal, unspecified; F10.280 Alcohol dependence with alcohol-induced anxiety disorder; Y90.8 Blood alcohol level of 240 mg/100 ml or more; Z91.19 Patient's noncompliance with other medical treatment and regimen; E03.9 Hypothyroidism, unspecified; I45.81 Long QT syndrome; Z85.72 Personal history of non-Hodgkin lymphomas; Z92.21 Personal history of antineoplastic chemotherapy
CPT/HCPCS: 80053; 81003; 82948; 84443; 84484; 85025; 86592; 86705; 86706; 86803; 87340; 87390; 93005; 96365; 96366; 96372; 96375; 96376; 99285; G0378; G0480; J1650; J2060; J3411; J7030